=== PATIENT | male | born 1985 | race Caucasian/White ===

== ENCOUNTER 2017-02-12 11:23 | Emergency (ER) | payer OTHER ==
[~2017-02-12] VITALS: Ht 185.4 cm; Wt 98.3 kg
[~2017-02-12 11:23] MED LIST: BUPR8MIS SL; CTP2 PO; DSY50 PO; FLUN0.02 NAE; GABA-113 PO; MTR600XX PO; PROM25TA PO; ZOLP10TA6 PO; [UNRECOGNIZED DRUG - OTHER] TOP
[2017-02-12 11:30] VITALS: TEMP 36.6; Ht 185.4 cm; Wt 98.3 kg
[2017-02-12 11:47] VITALS: O2SAT 93
--- NOTE | 2017-02-12 12:12 | DIAGNOSTIC IMAGING REPORT ---
CHEST 2 VIEWS ROUTINE CLINICAL HISTORY: Chest pain, cough, shortness of breath COMPARISON STUDY: July 31, 2009 FINDINGS: The cardiac and mediastinal contours are normal. There are left lower lobe airspace opacities consistent with pneumonia. There are no pleural effusions.[ IMPRESSION: Left lower lobe airspace opacities consistent with pneumonia. Films subsequent to treatment are recommended in follow-up Electronically signed by: Anish Gamble M.D. 02/12/2017 12:11 PM Dictated Date/Time: 02/12/2017 12:10 PM
[2017-02-12] MEDS ORDERED: CEFTRIAXONE SOD INJ 1 GM ADDVIAL IV STA (12:47)
[2017-02-12] MEDS ORDERED: AZITHROMYCIN 250 MG TAB PO STA (12:47)
[2017-02-12] MEDS ORDERED: ALBUT/IPRATROP 3MG/0.5MG NEB 3 ML VIAL INH STA (12:47)
[2017-02-12 13:26] LABS: BASO % 0.1 %; BASO ABS # 0.01 K/uL (0-0.2); COMPLETE YES; EOS % 0.1 %; HEMATOCRIT 46.2 % (42-52); IG% 0.2 %; LYMPH % 13.9 %; LYMPH ABS # 1.45 K/uL (1.2-3.4); MEAN CELL VOLUME 84.2 fL (80-100); MEAN CORPUSCULAR HEMOGLOBIN 30.1 pg (25-34); MEAN CORPUSCULAR HGB CONC 35.7 g/dl (32-36); MEAN PLATELET VOLUME 10.9 fL (7.4-10.4); MONO % 11.2 %; NEUT % 74.5 %; PLATELET COUNT 175 K/uL (130-400); RED BLOOD COUNT 5.49 M/uL (4.7-6.1); WHITE BLOOD COUNT 10.43 K/uL (4.8-10.8)
[2017-02-12 13:45] LABS: BUN/CREATININE RATIO 9.7 (10-20); CALCIUM 9.1 mg/dl (8.5-10.1); POTASSIUM 4.3 mmol/L (3.5-5.1)
[2017-02-12 13:48] LABS: ALB/GLOB RATIO 0.9 (0.9-2)
[2017-02-12] MEDS ORDERED: AZITPOW PO (15:23)
[2017-02-12] MEDS ORDERED: AMOX500C3 PO ×2 (15:23→16:02)
--- NOTE | 2017-02-12 15:23 | EMERGENCY ROOM VISIT NOTE ---
History First contact with patient: 12:39 Chief Complaint: CONGESTION Stated Complaint: CP, COUGHING, LFT ARM NUMB, SOB Nursing Triage Summary: pt reports chest congestion and non productive cough x 1 week. History of Present Illness The patient is a 31 year old male who presents to the Emergency Room with complaints of cough, congestion for the past week. Patient states his symptoms have been getting progressively worse over the past few days. He complains of some left-sided chest pain with coughing. Cough is nonproductive. He reports associated chills, intermittent dizziness, general fatigue/malaise. He has not tried any [id number] medications for his symptoms. He denies any sick contacts. He denies fevers, shortness of breath, nausea/vomiting, abdominal pain, diarrhea, urinary complaints. Review of Systems GENERAL: + chills, malaise, fatigue. Denies fevers, unintentional weight changes. HEENT: + dizziness. Denies visual problems, hearing loss, tinnitus. Denies difficulty swallowing or oral lesions. PULMONARY: + cough. Denies shortness of breath, sputum production or hemoptysis. CARDIOVASCULAR: + chest pain. Denies palpitations, dyspnea on exertion, orthopnea or peripheral edema. GASTROINTESTINAL: Denies diarrhea, constipation, nausea, vomiting, or abdominal pain. GENITOURINARY: Denies dysuria, frequency, urgency or nocturia. NEUROLOGIC: Denies history of epilepsy, CVA, TIA or chronic headaches. MUSCULOSKELETAL: Denies history of joint tenderness/swelling. SKIN: Denies rashes or lesions. PSYCHIATRIC: Denies history of depression or mental illness. ENDOCRINE: Denies history of diabetes, thyroid disorders, abnormal hair growth or sexual dysfunction. Past Medical/Surgical History Medical Problems: (1) Benign hypertension (2) Post traumatic stress disorder (3) Traumatic brain injury Social History Smoking Status: Never Smoker Alcohol Use: occasionally Drug Use: none Marital Status: single Occupation Status: disabled Current/Historical Medications Scheduled Amoxicillin (Amoxil), 1,000 MG PO TID Azithromycin (Azithromycin), 500 MG PO DAILY Clonidine HCl (Clonidine HCl), 0.2 MG PO TID Flunisolide (Nasal) (Flunisolide), 2 SPRAYS JUANPABLO BID Gabapentin (Neurontin), 600 MG PO TID Zolpidem Tartrate (Zolpidem Tartrate), 10 MG PO HS Scheduled PRN Ibuprofen (Ibuprofen), 600 MG PO TID PRN for Pain Allergies Coded Allergies: No Known Allergies (Verified , 02/12/17) Physical Exam Vital Signs Date Time Temp Pulse Resp B/P Pulse Ox O2 Delivery O2 Flow Rate FiO2 02/12/17 16:08 94 130/98 96 Room Air 02/12/17 15:25 101 20 110/68 94 Room Air 02/12/17 15:24 101 20 94 Room Air 02/12/17 13:50 97 20 111/74 95 Room Air 02/12/17 13:23 93 02/12/17 12:40 100 18 118/79 94 Room Air 02/12/17 11:47 93 Room Air 02/12/17 11:30 36.6 115 18 115/76 92 Room Air Physical Exam CONSTITUTIONAL: No acute distress. Well appearing and well nourished. Alert and oriented X 4 with normal affect. HEENT: Normocephalic, atraumatic. Pupils equal, round and reactive to light, EOMI. TMs normal. Pharynx normal. Dry mucous membranes. NECK: Supple, full active range of motion without discomfort. RESPIRATORY: Crackles and rhonchi heard in the left lower lung whelan. Right lung whelan clear to auscultation. Equal expansion bilaterally. CARDIOVASCULAR: Tachycardia. Regular rate and rhythm with no murmurs, rubs or gallops. Normal peripheral perfusion. No edema. GASTROINTESTINAL: Soft, nontender, nondistended. Bowel sounds present in all quadrants. MUSCULOSKELETAL: Full range of motion of all joints without discomfort. INTEGUMENTARY: No rash or other significant dermatologic conditions noted. NEUROLOGIC: Cranial nerves II-XII grossly intact. No focal neurologic deficits noted. Medical Decision & Procedures ER Provider Diagnostic Interpretation: CHEST 2 VIEWS ROUTINE CLINICAL HISTORY: Chest pain, cough, shortness of breath COMPARISON STUDY: July 31, 2009 FINDINGS: The cardiac and mediastinal contours are normal. There are left lower lobe airspace opacities consistent with pneumonia. There are no pleural effusions.[ IMPRESSION: Left lower lobe airspace opacities consistent with pneumonia. Films subsequent to treatment are recommended in follow-up. Laboratory Results 02/12/17 13:15 Red Blood Count 5.49, Mean Corpuscular Volume 84.2, Mean Corpuscular Hemoglobin 30.1, Mean Corpuscular Hemoglobin Concent 35.7, Mean Platelet Volume 10.9, Neutrophils (%) (Auto) 74.5, Lymphocytes (%) (Auto) 13.9, Monocytes (%) (Auto) 11.2, Eosinophils (%) (Auto) 0.1, Basophils (%) (Auto) 0.1, Neutrophils # (Auto ) 7.77, Lymphocytes # (Auto) 1.45, Monocytes # (Auto) 1.17, Eosinophils # (Auto ) 0.01, Basophils # (Auto) 0.01 02/12/17 13:15 Test 02/12/17 13:15 White Blood Count 10.43 K/uL (4.8-10.8) Red Blood Count 5.49 M/uL (4.7-6.1) Hemoglobin 16.5 g/dL (14.0-18.0) Hematocrit 46.2 % (42-52) Mean Corpuscular Volume 84.2 fL (80-100) Mean Corpuscular Hemoglobin 30.1 pg (25-34) Mean Corpuscular Hemoglobin Concent 35.7 g/dl (32-36) Platelet Count 175 K/uL (130-400) Mean Platelet Volume 10.9 fL (7.4-10.4) Neutrophils (%) (Auto) 74.5 % Lymphocytes (%) (Auto) 13.9 % Monocytes (%) (Auto) 11.2 % Eosinophils (%) (Auto) 0.1 % Basophils (%) (Auto) 0.1 % Neutrophils # (Auto) 7.77 K/uL (1.4-6.5) Lymphocytes # (Auto) 1.45 K/uL (1.2-3.4) Monocytes # (Auto) 1.17 K/uL (0.11-0.59) Eosinophils # (Auto) 0.01 K/uL (0-0.5) Basophils # (Auto) 0.01 K/uL (0-0.2) RDW Standard Deviation 42.6 fL (36.4-46.3) RDW Coefficient of Variation 13.7 % (11.5-14.5) Immature Granulocyte % (Auto) 0.2 % Immature Granulocyte # (Auto) 0.02 K/uL (0.00-0.02) Anion Gap 7.0 mmol/L (3-11) Est Creatinine Clear Calc Drug Dose 130.9 ml/min Estimated GFR () 114.9 Estimated GFR (Non- 99.1 BUN/Creatinine Ratio 9.7 (10-20) Calcium Level 9.1 mg/dl (8.5-10.1) Total Bilirubin 0.5 mg/dl (0.2-1) Aspartate Amino Transf (AST/SGOT) 18 U/L (15-37) Alanine Aminotransferase (ALT/SGPT) 39 U/L (12-78) Alkaline Phosphatase 104 U/L (45-117) Total Protein 8.4 gm/dl (6.4-8.2) Albumin 3.9 gm/dl (3.4-5.0) Globulin 4.5 gm/dl (2.5-4.0) Albumin/Globulin Ratio 0.9 (0.9-2) Medications Administered Medications (Trade) Dose Ordered Sig/Jaziel Route Start Time Stop Time Status Last Admin Dose Admin Albuterol/ Ipratropium (Duoneb) 3 ml NOW STAT INH 02/12/17 12:47 02/12/17 12:52 DC 02/12/17 13:26 3 ML Azithromycin (Zithromax Tab) 500 mg NOW STAT PO 02/12/17 12:47 02/12/17 12:52 DC 02/12/17 13:26 500 MG Ceftriaxone Sodium (Rocephin Inj) 1 gm NOW STAT IV 02/12/17 12:47 02/12/17 12:52 DC 02/12/17 13:26 1 GM Albuterol (Ventolin Hfa Inhaler) 2 puffs NOW ONCE INH 02/12/17 15:30 02/12/17 15:31 DC 02/12/17 16:14 2 PUFFS Medical Decision CC: Patient presenting with complaint of cough and chest congestion. Interpretation of Labs: Unremarkable, no leukocytosis or signs of dehydration. Differential Diagnosis: Includes, but not limited to URI, bronchitis, pneumonia , dehydration, asthma/COPD exacerbation, PE. Summary: Patient was evaluated at bedside, history of physical exam performed. Patient is alert and in no acute distress. Afebrile, mild tachycardic on vital signs. Dry mucous membranes and patient appears dehydrated clinically. Left lung whelan with crackles and rhonchi. Orders were placed at bedside for chest x-ray, labs, IV fluids to evaluate for pneumonia, dehydration. Patient discussed with Dr. Gutiérrez, who agrees with my assessment and plan. Chest x-ray shows left lower lobe pneumonia. IV Rocephin and oral azithromycin given to the patient. Pt has no clinical signs for DVT, low well's score (cannot perc out due to tachycardia). Symptoms and workup consistent with pneumonia. Tachycardia resolved with IV fluids. I do not suspect PE. Patient improving with IV fluids and DuoNeb treatment. Walking saturations 94- 96% with no significant shortness of breath. Patient reassessed multiple times throughout ED stay, improving with treatment and vitals remained stable. Discharged home in good condition. Impression Primary Impression: Community acquired pneumonia Departure Information Dispostion Home / Self-Care Condition GOOD Prescriptions Amoxicillin (AMOXIL) 500 Mg Cap 1000 MG PO TID for 7 Days, #42 CAP Prov: Chichi Varner CRNP 02/12/17 Azithromycin (Azithromycin) 250 Mg Tab 500 MG PO DAILY for 4 Days, #8 TABS Prov: Chichi Varner CRNP 02/12/17 Referrals DB CROWE (PCP) Patient Instructions ED Pneumonia, [facility] Additional Instructions Follow-up with your PCP in the next few days to be rechecked. Take the antibiotics as prescribed for the full amount of days prescribed. Do not skip any doses. Use the albuterol inhaler provided to you, 2 puffs every 4-6 hours as needed for chest tightness, wheezing, cough. Drink plenty of fluids to stay well hydrated. Please return to the ER for worsening symptoms, including shortness of breath, chest pain, coughing up blood severe dizziness or passing out, vomiting and unable to keep down medications, fever/chills/feeling ill, or any other concerns.
[2017-02-12] MEDS ORDERED: ALBUTEROL HFA 8 GM INHALER INH ONE (15:30)
[2017-02-12] MEDS ORDERED: AZIT-57 PO (16:02)
[2017-02-12 16:08] VITALS: BP 130/98; PULSE 94; O2SAT 96
== END 2017-02-12 16:16 | disposition home or self-care (01) ==
LOC: C.EDB 11:27 → C.EDA 16:16
DX: J18.9 Pneumonia, unspecified organism (principal); R07.9 Chest pain, unspecified; R00.0 Tachycardia, unspecified; R53.81 Other malaise; R53.83 Other fatigue; I10 Essential (primary) hypertension; Z87.828 Personal history of other (healed) physical injury and trauma; Z79.899 Other long term (current) drug therapy; R91.8 Other nonspecific abnormal finding of lung field

== ENCOUNTER 2024-07-30 14:55 | Inpatient (IN) ==
--- NOTE | 2024-07-30 16:21 | XRay Report ---
Chest radiograph, one view History: Chest pain Comparison: 03/31/2023 Findings: Single AP view of the chest performed. No focal consolidation or pleural effusion. No pneumothorax. The cardiomediastinal silhouette is within normal limits. Normal pulmonary vascularity. No evidence for lymphadenopathy. No visualized bony or soft tissue abnormality. Impression: Normal chest radiograph Electronically signed by Romulo Lunsford 07-30-2024 4:20 PM
[2024-07-30 16:33] LABS: Influenza A virus by PCR Negative (Neg); Influenza B virus by PCR Negative (Neg); RSV by PCR Negative (Neg); SARS CoV2 RNA(COVID-19) Ceph NEGATIVE (Negative)
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
[2024-07-30 16:49] LABS: Basophils # (auto) 0.03 K/uL (0.00-0.20); Basophils % (auto) 0.4 %; Eosinophils % (auto) 1.2 %; Hematocrit (blood only) 41.3 % (42.0-52.0); Hemoglobin 14.9 g/dl (14.0-18.0); Immature Granulocytes # (auto) 0.02 K/uL (0.01-0.20); Immature Granulocytes % (auto) 0.2 %; Lymphocytes # (auto) 1.76 K/uL (1.20-3.40); Lymphocytes % (auto) 20.6 %; Mean Corpuscular Hemoglobin 29.4 pg (25.0-34.0); Mean Corpuscular Hgb Conc 36.1 g/dL (32.0-36.0); Mean Corpuscular Volume 81.5 fL (80.0-100.0); Mean Platelet Volume 11.1 fL (9.4-12.4); Monocytes # (auto) 0.84 K/uL (0.11-0.59); Monocytes % (auto) 9.8 %; Neutrophils # (auto) 5.79 K/uL (1.40-6.50); Neutrophils % (auto) 67.8 %; Platelet Count 208 K/uL (130-400); RDW Coefficient of Variation 12.2 % (11.5-14.5); RDW Standard Deviation 35.9 fL (36.4-46.3); Red Blood Count 5.07 M/uL (4.70-6.10); White Blood Count 8.54 K/ul (4.8-10.8)
[2024-07-30] MEDS: SODIUM CHLORIDE 0.9% 1,000 ML IV ONE (17:01)
[2024-07-30 17:07] LABS: Alanine Aminotransferase 10 U/L (7-52); Albumin Globulin Ratio 1.3 (0.9-2); Albumin Level 4.2 gm/dl (3.4-5.0); Alkaline Phosphatase 93 U/L (34-104); Anion Gap 6 (3-11); Aspartate Aminotransferase 15 U/L (13-39); Bilirubin,Total 0.5 mg/dl (0.2-1.0); Blood Urea Nitrogen 10 mg/dl (6-23); Calcium 9.2 mg/dl (8.6-10.3); Carbon Dioxide 31 mmol/L (21-32); Chloride 102 mmol/L (98-107); Creatinine Clr Calc Pharmacy 107.8 ml/min; Globulin 3.2 gm/dl (2.5-4.0); Glucose 123 mg/dl (70-99(Fasting)); Magnesium 1.9 mg/dl (1.7-2.4); Potassium 4.5 mmol/L (3.5-5.1); Sodium 139 mmol/L (136-145); Total Protein 7.4 gm/dl (6.0-8.3)
[2024-07-30 17:11] LABS: Troponin I High Sensitivity < 2.3 pg/ml (0-20)
[2024-07-30 17:17] LABS: INR 1.1 (0.9-1.1); Partial Thromboplastin Time 26 Seconds (21-31); Prothrombin Time 11.4 Seconds (9.0-12.0)
[2024-07-30 17:21] LABS: Thyroid Stimulating Hormone 2.847 uIu/ml (0.300-4.500)
[2024-07-30 17:24] LABS: Procalcitonin < 0.02 ng/ml (0-0.5)
[2024-07-30] MEDS ORDERED: VANCOMYCIN CONSULT ACTIVE PRN (17:42)
[2024-07-30 17:50] LABS: Lyme Screen Rflx Confirmation Negative (Negative)
--- NOTE | 2024-07-30 18:00 | Electrocardiogram Report ---
Test Reason : Blood Pressure : */* mmHG Vent. Rate : 40 BPM Atrial Rate : 40 BPM P-R Int : 172 ms QRS Dur : 84 ms QT Int : 482 ms P-R-T Axes : 58 35 43 degrees QTcB Int : 392 ms Marked sinus bradycardia Abnormal ECG When compared with ECG of 31-Mar-2023 22:56, Vent. rate has decreased by 28 bpm Confirmed by Romulo Waters ([id number]) on 07/30/2024 5:59:48 PM Referred By: Confirmed By: Romulo Waters
[2024-07-30] MEDS: cefTRIAXone SODIUM 2,000 MG/50 ML BAG IV STA (18:08)
[2024-07-30] MEDS: VANCOMYCIN HCL 1,750 MG in DEXTROSE 5% 500 ML IV ONE (18:42)
[2024-07-30 20:24] LABS: Lipase 12 U/L (11-82)
--- NOTE | 2024-07-30 20:39 | History & Physical Report ---
Date of Service July 30, 2024 Assessment & Plan (1) Sinus bradycardia: (2) Cellulitis: (3) Seizure disorder: (4) Chronic constipation: (5) Nausea & vomiting: Plan 39 year old male with PMHx of chronic constipation with h/o partial colectomy secondary to perforation, h/o TBI with seizures, presenting at the recommendation of his PCP seemingly due to new bradycardia: #Sinus bradycardia: Unclear etiology but suspect secondary to infectious process, rates consistently in the 30s-40s - patient more fatigued compared to baseline but not overtly symptomatic EKG sinus bradycardia, rate 40, QTc 392 TSH WNL Hold home Clonidine due to bradycardia - anticipate rebound hypertension, PRN hydralazine 5mg IV Q4H for SBP>180 - Consider restarting clonidine as rates improve #Burn/Cellulitis, RLE: Given h/o IV drug use, continue broad spectrum abx with Vanc and Ceftriaxone - Nasal MRSA pending - if negative, will discontinue Vanc Inflammatory markers pending, recheck AM labs: CBC #Chronic constipation: Likely cause of N/V - KUB ordered to evaluate stool burden, r/o SBO - pending - if able to r/o SBO, will escalate bowel regimen with Senna + Miralax #Seizure disorder: - Continue home Clonazepam 1mg QID Dispo: admit to PCU-tele FEN/GI: regular diet VTE ppx: Lovenox Full Code History of Present Illness Primary Care Provider: Hermilo Mitchell MD 39 year old male with PMHx of chronic constipation with h/o partial colectomy secondary to perforation, h/o TBI with ongoing seizures, presenting at the recommendation of his PCP seemingly due to new bradycardia "or maybe something in my urine." Patient is not a particularly good historian, appears lethargic, mentally sluggish, and with tangential speech. Patient reports that he has been having intermittent dizziness, HAs, nausea, vomiting, and generalized fatigue, all of which are chronicx4-5 years but seem to have worsened over the past few weeks. Of note, patient repeatedly expresses suspicion that his neighbors put something in his home that causes "sonic nausea," thinks this may be the cause of his sx. Lightheadedness is not positionally related, sometimes occurs at rest. Pt reports vomiting at least half the days over the past 2 weeks, anywhere from 2-10 times in a day and not improved with Zofran. Patient reports mild URI about 3 weeks ago, had sore throat, cough, sinus congestion. Denies diarrhea, last bowel movement 5-7 days ago, is passing gas though. Denies chest pain, shortness of breath, palpitations. Sinus bradycardia noted at PCP appointment yesterday. Per patient, this is first occurrence of bradycardia, states that he had some kind of tachyarrhythmia in 2014 but otherwise denies h/o cardiac issues. Endorses dysuria and increased urinary frequency over past 4-5 days. Also burned his right calf 4-5 days ago, states that it is exquisitely tender even with light touch. Patient denies any recent medication changes, states that he takes all his meds as prescribed. Denies recreational drug use, denies EtOH use. ED Course: Patient afebrile on arrival, WBC count WNL, labs largely unremarkable with negative lactate/procal/troponin/lipase/Lyme screen, EKG with sinus bradycardia rate 40. Given 1L IV fluids and started on broad spectrum abx (Ceftriaxone, Vanc ordered) Allergies Allergy/AdvReac Type Severity Reaction Status Date / Time naloxone Allergy throat Verified 07/30/24 18:41 swelling, headaches trazodone Allergy sexual Verified 07/30/24 18:41 dysfunction Home Medications Medication Instructions Recorded Confirmed Type acetaminophen 325 mg tablet 650 mg PO QID PRN Pain 10/15/22 07/30/24 History buprenorphine HCl 8 mg sublingual 8 mg sublingual TID 10/15/22 07/30/24 History tablet clonazepam 1 mg tablet 1 mg PO QID 10/15/22 07/30/24 History clonidine HCl 0.3 mg tablet 0.3 mg PO TID 10/15/22 07/30/24 History docusate sodium 100 mg tablet 100 mg PO BID PRN Constipation 10/15/22 07/30/24 History polyethylene glycol 3350 17 17 - 34 g PO QAM PRN Constipation 10/15/22 07/30/24 History gram/dose oral powder (Miralax) quetiapine 100 mg tablet 100 mg PO UD 10/15/22 07/30/24 History zolpidem 10 mg tablet 10 mg PO HS PRN Sleep 10/15/22 07/30/24 History quetiapine 200 mg tablet (Seroquel) 200 mg PO UD 07/30/24 07/30/24 History Past Med/Surg History Problem List (Updated 07/31/24 @ 00:02 by Donn Browning MD) Abrasion of skin of right lower leg (Acute) Cellulitis of right lower extremity (Acute) Symptomatic bradycardia (Acute) Cellulitis Nausea & vomiting Sinus bradycardia Chronic constipation Seizure disorder Constipation (Acute) Encounter for pre-operative examination Altered mental status (Acute) Community acquired pneumonia (Acute) Drug overdose (Acute) Medical History Dyssynergic defecation "had a special test done at [facility]" Hx of irritable bowel syndrome w/constipation History of urinary hesitancy Hx of traumatic brain injury residual effect: dizziness, lightheadedness, falling, memory lapses; f/u w/neurologist thru the [place], most recent visit via zoom 10/15/22 Generalized anxiety disorder with panic attacks Anxiety disorder History of seizure many years ago; currrently on clonazepam History of panic attacks Hx of cardiac arrhythmia ~2013 or 2014, "heart was racing, went to up over 200bpm, having chest pain; called EMS, who came to house to get heart rate down" taken to hospital, transferred to [place], testing done and found to have an arrhythmia; only f/u PCP Surgical History History of surgery "removed cancer cells from his scalp" Hx of shoulder surgery pectoralis muscle reattached Hx of arthroscopic knee surgery rt. History of intestinal surgery re-anastomosis/reveral of colostomy of bowel Hx of hernia repair x2 History of partial colectomy w/removal appendix; w/colostomy Social History Smoking Status: Current every day smoker Tobacco Type: E-cigarettes / Vaping Cigarettes Per Day: vape daily; Second Hand Exposure: No; Do You Dip or Chew Tobacco: No; Tobacco Cessation Education Requested by Patient: No Hx Alcohol Use: No Hx Substance Use: No Preferred Language: Canadian Communication Ability: Effective Housekeeping Assistant Required: No Beliefs That Will Affect Care: None Current Living Situation: Alone Feels Safe at Home: Yes Safety Concerns: Feels Safe At This Time Assistive Devices: Glasses Review of Systems Review of Systems: as per HPI Physical Exam Physical Exam: General: Alert and oriented. Lethargic but in no acute distress Cardiac: +bradycardia, regular rhythm, no murmurs appreciated Respiratory: Lungs clear to auscultation bilaterally, No increased work of breathing Abdominal: Soft, non-tender, non-distended. Bowel sounds present. Extremities: Right medial calf with superficial burn with surrounding erythema and swelling in comparison to left calf Neuro: AOx3, PERRL, no focal deficits Results & Data Results & Data Vital Signs (Past 12 Hours) Vital Signs Temp Pulse Pulse Resp BP BP Pulse Ox 07/30/24 19:15 40 L 07/30/24 18:36 42 L 16 99 07/30/24 18:30 165/92 H 07/30/24 18:15 39 L 12 99 07/30/24 18:03 37 L 13 100 07/30/24 18:00 152/101 H 07/30/24 17:45 36 L 14 100 07/30/24 17:30 37 L 18 158/96 H 100 07/30/24 17:12 36 L 12 100 07/30/24 16:59 39 L 14 135/84 98 07/30/24 16:42 38 L 15 07/30/24 16:15 39 L 19 07/30/24 16:03 40 L 17 96 07/30/24 16:00 118/78 07/30/24 15:54 41 L 13 96 07/30/24 15:45 40 L 13 96 07/30/24 15:30 38 L 129/85 96 07/30/24 15:30 129/85 07/30/24 15:05 39 L 07/30/24 15:01 36.5 C 41 L 16 129/81 96 O2 Del Method 07/30/24 19:15 07/30/24 18:36 Room Air 07/30/24 18:30 07/30/24 18:15 Room Air 07/30/24 18:03 Room Air 07/30/24 18:00 07/30/24 17:45 Room Air 07/30/24 17:30 Room Air 07/30/24 17:12 Room Air 07/30/24 16:59 Room Air 07/30/24 16:42 07/30/24 16:15 07/30/24 16:03 Room Air 07/30/24 16:00 07/30/24 15:54 Room Air 07/30/24 15:45 Room Air 07/30/24 15:30 Room Air 07/30/24 15:30 07/30/24 15:05 07/30/24 15:01 Room Air Supervising Physician Co-Signing Physician Notes I personally saw and examined the patient. I independently reviewed the labs, EKG, imaging, problem list, medication list, past medical history and family history. I verified all cuellar points and agree with resident physician Dr Pradeep Strong, DO with the following exceptions and/or additions: 39 year old male presents to the ER with generalized weakness, nausea, dizziness. Right lower extremity swelling and erythema. O/E HS decreased rate, regular rhythm, no murmurs, Chest CTAB, Abdo SNT, right lower extremity erythema and swelling from mid jean baptiste to ankle A/P Right lower extremity cellulitis - Vancomycin + ceftriaxone, consider stopping vancomycin if MRSA nasal swab negative Sinus bradycardia - suspect due to infection in setting of clonidine use. Stop clonidine, Hydralazine PRN for rebound hypertension Constipation - await XR KUB before adding laxatives to assess for SBO although no abdominal pain on exam although he has not had a bowel movement in several days and has some nausea and vomiting. Resident Activity Tracking Resident Involvement: Resident Care Provided Care Provided: Adult Hospital Medicine
[2024-07-30 20:47] LABS: Appearance Urine Clear (Clear); Bacteria Urine Automated None Seen (None Seen); Bilirubin Urine Negative (Negative); Blood Urine Trace (Negative); Calcium Oxalate Crystals Urine Present (None Prsent); Cast Urine Automated 0-2 /lpf (0-2); Color Urine Yellow; Epithelial Cell Urine Auto 0-2 /hpf (0-2); Glucose Urine UA Negative (Negative); Ketones Urine Negative (Negative); Leukocyte Esterase Urine Negative (Negative); Nitrite Urine Negative (Negative); Protein Urine Negative (Negative); Urobilinogen Urine Negative (Negative); WBC Urine Automated 0-5 /hpf (0-5)
[2024-07-30 21:04] LABS: Amphetamines+Metham, Urine Neg (Neg); Barbiturates, Urine Neg (Neg); Benzodiazepine, Urine Neg (Neg); Cocaine, Urine Neg (Neg); Fentanyl, Urine Neg (Neg); MDMA (Ecstacy), Urine Neg (Neg); Marijuana, Urine Neg (Neg); Methadone, Urine Neg (Neg); Opiate, Urine Neg (Neg); Phencyclidine, Urine Neg (Neg)
[2024-07-30] MEDS ORDERED: POLYETHYLENE (MIRALAX) 17 GM PACK PO PRN (21:25)
[2024-07-30] MEDS ORDERED: ALUMINUM/MAGNESIUM SUSP 30 ML UDC PO PRN (21:25)
[2024-07-30] MEDS ORDERED: MAGNESIUM HYDROXIDE SUSP 30 ML UDC PO PRN (21:25)
[2024-07-30] MEDS ORDERED: hydrALAZINE HCL 20 MG/ML VIAL IV PRN (21:25)
[2024-07-30] MEDS ORDERED: ACETAMINOPHEN 325 MG TAB PO PRN (21:25)
[2024-07-30] MEDS ORDERED: ONDANSETRON INJ 2 MG/ML 2 ML VIAL IV PRN (21:25)
[2024-07-30 21:37] LABS: C Reactive Protein 2.45 mg/dl (0-0.5)
[2024-07-30] MEDS: buprenorphine HCL 8 MG SUBL SL SCH (22:12)
[2024-07-30] MEDS: clonazePAM 1 MG TAB PO SCH (22:12)
[2024-07-30] MEDS: QUEtiapine FUMARATE 100 MG TABLET PO SCH (22:13)
[2024-07-30] MEDS: QUEtiapine FUMARATE 200 MG TAB PO SCH (22:13)
[2024-07-30] MEDS: DOCUSATE SODIUM 100 MG CAP PO PRN (22:14)
--- OUTSIDE RECORDS SUMMARY | 2024-07-31 00:44 | External Medical Summary | Summary of Care ---
Author Name Unknown Organization [facility] Address [address] [place] [address] Phone [phone] Care Team Providers Care Spotlight Operator Name Role Phone Hermilo Mitchell MD Primary Care Provider [phone] Reason for Visit * Reason Onset Date Comments Referral 05/12/2024 Encounter Details Date Type Department Care Team (Late st Contact Info) Description 05/12/2024 Telephone Gastroenterology, [facility] [address] [facility] [place] [address] Aaron Arizmendi MD [address] [facility] [place] [address] Referral Allergies No known active allergiesdocumented as of this encounter (statuses as of 05/12/2024) Medications Medication Sig Dispensed Refills Start Date End Date Status AMITRIPTYLINE HCL 25 MG PO TABSIndications:Headac he(784.0),Insomnia, unspecified,Anxiety state One pill by mouth at bedtime 30 Tab 5 05/06/2012 Active AMBIEN 10 MG PO TABSIndications:Insomn ia, unspecified 1 pill if awakens 15 Tab 1 05/06/2012 Active documented as of this encounter (statuses as of 05/12/2024) Active Problems Problem Noted Date Diagnosed Date ACUTE PHARYNGITIS 07/16/2004 ACUTE URI NOS 07/16/2004 Unspecified viral infection, in conditions classified elsewhere and of unspecified site 07/16/2004 MYALGIAS 07/16/2004 Dysuria 06/11/2004 Urinary frequency 06/11/2004 History of other specified c onditions presenting hazards to health 06/11/2004 Overview: ICD-10 update of inactive term BACKACHE NOS 06/11/2004 Malaise and fatigue 02/22/2004 Anxiety state 02/22/2004 Major depressive disorder, recurrent episode, mo derate 02/22/2004 CHLAMYDIA TRACHOMATIS INFECT OF LOWER GENITOURIN CRISTA SITE 12/06/2003 Other acne documented as of this encounter (statuses as of 05/12/2024) Resolved Problems Problem Noted Date Diagnosed Date Resolved Date CHLAMYDIA TRACHOMATIS INFECT OF LOWER GENITOURINARY SITE 11/28/2003 02/22/2004 Dysuria 11/18/2003 02/22/2004 VIRAL SYNDROME 12/20/2002 02/22/2004 ACUTE PHARYNGITIS 12/20/2002 02/22/2004 Unspecified viral infection, in conditions classified elsewhere and of unspecified site 07/01/2001 02/22/2004 ACUTE URI NOS 07/01/2001 02/22/2004 Volume depletion 07/01/2001 02/22/2004 ADJUST REACT-CONDUCT DIS 02/05/2001 documented as of this encounter (statuses as of 05/12/2024) Immunizations Name Administration Dates Next Due TDAP, Age 7 and older, IM (Adacel) 06/14/2009 documented as of this encounter Social History Tobacco Use Types Packs/Day Years Used Date Smoking Tobacco: Every Day Cigarettes Smokeless Tobacco: Never Alcohol Use Standard Drinks/Week Comments No 0 (1 standard drink = 0.6 oz pur e alcohol) Utilities Answer Date Recorded Do you have trouble paying y our heating, water, or electric bill? (Adult - for ages 18 years and over) Not on file 03/16/2024 Is your family able to pay t he heat, water, or electric bill? (Household - for ages 0-17 years) Not on file 03/16/2024 Does your family have access to good internet? (Household - for ages 0-17 years) Not on file 03/16/2024 Social Connections Answer Date Recorded How often do you feel lonely or isolated from those around you? (Adult - for ages 18 years and over) Not on file 03/16/2024 Sex and Gender Information Value Date Recorded Sex Assigned at Not on file Gender Identity Not on file Sexual Orientation Not on file documented as of this encounter Miscellaneous Notes * Telephone Encounter - Arleth Hull OSA - 05/12/2024 8:26 AM EDT Received referral for pt to be seen for constipation. Lmm for pt to return call to schedule appt AARTI Mckay 05/12/2024 8:26 AM documented in this encounter Plan of Treatment Health Maintenance Due Date Last Done Comments Pneumococcal Vaccine: Pediatrics (0 to 5 Years) and At-Risk Patients (6 to 64 Years) (1 of 2 - PCV) 1990 Depression Monitoring 1996 HIV Screening 1999 Hepatitis B Vaccine (1 of 3 - 19+ 3-dose series) 2003 Lipid Panel 01/27/2005 01/28/2000, 11/28, 11/15/1999, Additional history exists DTaP,Tdap,and Td Vaccines (2 - Td or Tdap) 06/14/2019 06/14/2009 COVID-19 Vaccine (1 - 2022-24 season) 2023 Influenza Vaccine (FLU shot) (#1) 2024 Hepatitis C Screening Completed 07/12/1998 HPV (Gardasil) Vaccine Aged Out No lo nger eligible based on patient's age to complete this topic MENINGOCOCCAL (MENACTRA/MENVEO) Aged Out No longer eligible based on patient's age to complete this topic documented as of this encounter Medical Devices Not on filedocumented as of this encounter Care Teams Spotlight Operator Relationship Specialty Start Date End Date Hermilo Mitchell MD [address] [facility] [place] [address] PCP - General Internal Medicine 07/09/23 documented as of this encounter
--- OUTSIDE RECORDS SUMMARY | 2024-07-31 00:44 | External Medical Summary | Summary of Care ---
Author Name Unknown Organization [facility] Address [address] [place] [address] Phone [phone] Care Team Providers Care Supervisor Hardboard Name Role Phone Hermilo Mitchell MD Primary Care Provider [phone] Reason for Visit * Reason Onset Date Comments Referral 05/12/2024 Encounter Details Date Type Department Care Team (Late st Contact Info) Description 05/12/2024 Telephone Gastroenterology, [facility] [address] [place] [address] Aaron Arizmendi MD [address] [facility] [place] [address] Referral Allergies No known active allergiesdocumented as of this encounter (statuses as of 05/26/2024) Medications Medication Sig Dispensed Refills Start Date End Date Status AMITRIPTYLINE HCL 25 MG PO TABSIndications:Headac he(784.0),Insomnia, unspecified,Anxiety state One pill by mouth at bedtime 30 Tab 5 05/06/2012 Active AMBIEN 10 MG PO TABSIndications:Insomn ia, unspecified 1 pill if awakens 15 Tab 1 05/06/2012 Active documented as of this encounter (statuses as of 05/26/2024) Active Problems Problem Noted Date Diagnosed Date [...] as of this encounter (statuses as of 05/26/2024) Resolved Problems Problem Noted Date Diagnosed Date Resolved Date CHLAMYDIA TRACHOMATIS INFECT OF LOWER GENITOURINARY SITE 11/28/2003 02/22/2004 Dysuria 11/18/2003 02/22/2004 VIRAL SYNDROME 12/20/2002 02/22/2004 ACUTE PHARYNGITIS 12/20/2002 02/22/2004 Unspecified viral infection, in conditions classified elsewhere and of unspecified site 07/01/2001 02/22/2004 ACUTE URI NOS 07/01/2001 02/22/2004 Volume depletion 07/01/2001 02/22/2004 ADJUST REACT-CONDUCT DIS 02/05/2001 documented as of this encounter (statuses as of 05/26/2024) Immunizations Name Administration Dates Next Due IPV - Polio Virus Vaccine (Inact) 05/27/2001 TDAP, Age 7 and older, IM (Adacel) [...] Telephone Encounter - Arleth Hull OSA - 05/26/2024 9:31 AM EDT Unable to lm Sending letter AARTI Mckay 05/26/2024 9:31 AM * Telephone Encounter - Arleth Hull OSA [...] 01/27/2005 01/28/2000, 11/28, 11/15/1999, Additional history exists DTap/Tdap Vaccines (2 - Td or Tdap) 06/14/2019 06/14/2009 COVID-19 Vaccine (2022-24 season) 2023 Influenza Vaccine (FLU shot) (#1) 2024 Hepatitis C Screening Completed 07/12/1998 HPV (Gardasil) Vaccine Aged Out No lo nger eligible based on patient's age to complete this topic MENINGOCOCCAL (MENACTRA/MENVEO) Aged Out No longer eligible based on patient's age to complete this topic documented as of this encounter Medical Devices Not on filedocumented as of this encounter Care Teams Supervisor Hardboard Relationship Specialty Start Date End Date Hermilo Mitchell MD [address] [facility] [place] [address] PCP - General Internal Medicine 07/09/23 documented as of this encounter
--- OUTSIDE RECORDS SUMMARY | 2024-07-31 00:44 | External Medical Summary | Summary of Care ---
Author Name Unknown Organization [facility] Address [address] [place] [address] Phone [phone] Care Team Providers Care Miller First Name Role Phone Hermilo Mitchell MD Primary Care Provider [phone] Encounter Details Date Type Department Care Team (Late st Contact Info) Description 02/18/2024 Telephone Access Center, [facility] [address] [facility] *DO NOT REMOVE THIS DEPARTMENT* [place], [place] [id number] Services, Scheduling [address] [place] [address] Allergies No known active allergiesdocumented as of this encounter (statuses as of 05/19/2024) Medications Medication Sig Dispensed Refills Start Date End Date Status AMITRIPTYLINE HCL 25 MG PO TABSIndications:Headac he(784.0),Insomnia, unspecified,Anxiety state One pill by mouth at bedtime 30 Tab 5 05/06/2012 Active AMBIEN 10 MG PO TABSIndications:Insomn ia, unspecified 1 pill if awakens 15 Tab 1 05/06/2012 Active documented as of this encounter (statuses as of 05/19/2024) Active Problems Problem Noted Date Diagnosed Date [...] as of this encounter (statuses as of 05/19/2024) Resolved Problems Problem Noted Date Diagnosed Date Resolved Date CHLAMYDIA TRACHOMATIS INFECT OF LOWER GENITOURINARY SITE 11/28/2003 02/22/2004 Dysuria 11/18/2003 02/22/2004 VIRAL SYNDROME 12/20/2002 02/22/2004 ACUTE PHARYNGITIS 12/20/2002 02/22/2004 Unspecified viral infection, in conditions classified elsewhere and of unspecified site 07/01/2001 02/22/2004 ACUTE URI NOS 07/01/2001 02/22/2004 Volume depletion 07/01/2001 02/22/2004 ADJUST REACT-CONDUCT DIS 02/05/2001 documented as of this encounter (statuses as of 05/19/2024) Immunizations Name Administration Dates Next Due TDAP, [...] encounter Miscellaneous Notes * Telephone Encounter - Marce Lazar OSA - 02/18/2024 8:23 AM EDT Unable to reach patient to offer sooner appointment. If patient calls back and still available please reschedule and offer video visit. Thank you documented in this encounter Plan of Treatment [...] Tdap) 06/14/2019 06/14/2009 COVID-19 Vaccine (1 - 2022- season) 2023 Influenza Vaccine (FLU shot) (#1) 2024 Hepatitis C Screening Completed 07/12/1998 HPV (Gardasil) Vaccine Aged Out No lo nger eligible based on patient's age to complete this topic MENINGOCOCCAL (MENACTRA/MENVEO) Aged Out No longer eligible based on patient's age to complete this topic documented as of this encounter Medical Devices Not on filedocumented as of this encounter Care Teams Miller First Relationship Specialty Start Date End Date Hermilo Mitchell MD [address] [facility] [place] [address] PCP - General Internal Medicine 07/09/23 documented as of this encounter
--- OUTSIDE RECORDS SUMMARY | 2024-07-31 00:44 | External Medical Summary | Summary of Care ---
Author Name Unknown Organization [facility] Address [address] [place] [address] Phone [phone] Care Team Providers Care Press Tender Long Goods Name Role Phone Hermilo Mitchell MD Primary Care Provider [phone] Reason for Visit * Reason Onset Date Comments Referral 05/12/2024 Encounter Details Date Type Department Care Team (Late st Contact Info) Description 05/12/2024 Telephone Gastroenterology, [facility] [address] [place] [address] Aaron Arizmendi MD [address] [place] [address] Referral Allergies No known active allergiesdocumented as [...] 05/26/2024 9:31 AM EDT Unable to lm AARTI Mckay 05/26/2024 9:31 AM * Telephone [...] filedocumented as of this encounter Care Teams Press Tender Long Goods Relationship Specialty Start Date End Date Hermilo Mitchell MD [address] [facility] [place] [address] PCP - General Internal Medicine 10/11/23 documented as of this encounter
--- NOTE | 2024-07-31 01:04 | XRay Report ---
Exam(s): XR ABDOMEN EXAM: XR Abdomen, 1 View CLINICAL HISTORY: Reason for exam: constipation, r/o SBO. TECHNIQUE: Frontal supine view of the abdomen/pelvis. COMPARISON: No relevant prior studies available. FINDINGS: Gastrointestinal tract: 7.6 cm of stool in the cecum and right colon suggesting constipation. No dilation. Bones/joints: Unremarkable. No acute fracture. Vasculature: There are several phleboliths in the left side of the pelvis. IMPRESSION: 7.6 cm of stool in the cecum and right colon suggesting constipation. No dilated small bowel loops identified. Electronically signed by: Eugene Mccracken MD 07/31/24 01:04 AM
[2024-07-31] MEDS: VANCOMYCIN 1,500 MG in D5W 500mL (Use w/ NSS Shortage) IV SCH (03:56)
[2024-07-31 06:55] LABS: Basophils # (auto) 0.04 K/uL (0.00-0.20); Basophils % (auto) 0.6 %; Eosinophils # (auto) 0.15 K/uL (0.00-0.50); Eosinophils % (auto) 2.4 %; Hematocrit (blood only) 38.4 % (42.0-52.0); Hemoglobin 13.4 g/dl (14.0-18.0); Immature Granulocytes # (auto) 0.01 K/uL (0.01-0.20); Immature Granulocytes % (auto) 0.2 %; Lymphocytes # (auto) 2.06 K/uL (1.20-3.40); Lymphocytes % (auto) 32.7 %; Mean Corpuscular Hemoglobin 29.1 pg (25.0-34.0); Mean Corpuscular Hgb Conc 34.9 g/dL (32.0-36.0); Mean Corpuscular Volume 83.5 fL (80.0-100.0); Mean Platelet Volume 11.1 fL (9.4-12.4); Monocytes # (auto) 0.76 K/uL (0.11-0.59); Monocytes % (auto) 12.1 %; Neutrophils # (auto) 3.28 K/uL (1.40-6.50); Platelet Count 179 K/uL (130-400); RDW Coefficient of Variation 12.3 % (11.5-14.5); RDW Standard Deviation 37.1 fL (36.4-46.3)
[2024-07-31 07:11] LABS: Albumin Globulin Ratio 1.5 (0.9-2); Albumin Level 3.7 gm/dl (3.4-5.0); BUN Creatinine Ratio 12.2 (10-20); Bilirubin,Total 0.4 mg/dl (0.2-1.0); Calcium 8.4 mg/dl (8.6-10.3); Creatinine Clr Calc Pharmacy 131.4 ml/min; Globulin 2.5 gm/dl (2.5-4.0); Potassium 3.7 mmol/L (3.5-5.1); Total Protein 6.2 gm/dl (6.0-8.3)
[2024-07-31 07:48] VITALS: RESP 17
[2024-07-31] MEDS: ENOXAPARIN INJ 40 MG/0.4 ML SYR SQ SCH (07:51)
--- NOTE | 2024-07-31 07:57 | Billing Data ---
Date of Service July 30, 2024 Coding Level of Care Code 23439 INT INP/OBS CARE
[2024-07-31 11:18] VITALS: BP 128/84; PULSE 77; TEMP 98.1; O2SAT 99
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
[2024-07-31] MEDS ORDERED: VANCOMYCIN HCL 1,500 MG in SODIUM CHLORIDE 0.9% 500 ML IV ONE (16:00)
[2024-07-31] MEDS ORDERED: cefTRIAXone SODIUM 2,000 MG/50 ML BAG IV SCH (18:00)
[2024-08-01] MEDS ORDERED: VANCOMYCIN LEVEL ONE (03:30)
== END 2024-07-31 12:27 | disposition home or self-care (01) | DRG 309 ==
LOC: ED 14:55 → SUATTDRO 19:55 → 2S 19:55

== ENCOUNTER 2024-08-14 06:45 | Inpatient (IN) ==
--- NOTE | 2024-08-14 07:01 | Emergency Department Note ---
Impression & Plan Kidney stone on right side, Nausea & vomiting, Drowsy ED Provider Note Provider: Eugene Mauricio MD DATE OF SERVICE: 08/13/2024 CHIEF COMPLAINT: Right abdominal pain nausea and vomiting, HISTORY OF PRESENT ILLNESS: Patient is a 39-year-old gentleman with history of chronic constipation prior partial colectomy secondary to perforation, TBI with seizures presenting here today from home via ambulance. Reports onset around 2:30a this morning with significant pain in the right abdomen to flank region. Experienced 5-6 episodes of nausea and vomiting. No blood reported in this patient. No diarrhea. Denies significant chest pain or shortness of breath. No falls reported. No cough or cold symptoms. No issues yesterday. States he feels a little bit drowsy. No significant genital pain reported. PAST MEDICAL HISTORY: As noted above MEDICATIONS: Reviewed home medication listhas not taken morning meds SOCIAL HISTORY: Resides at home PHYSICAL EXAM: GENERAL: alert and oriented in no acute distress on stretcher but fatigued resting with eyes closed somewhat drowsy Head: normocephalic and atraumatic EYES: No discharge or icterus with very mild bilateral injection. PERRL, EOMI. NECK: Trachea midline. ENT: Mucous membranes pink and LUNGS: Airway patent. No retractions. Breath sounds clear with good air entry bilaterally. HEART: Regular rate and rhythm. No chest wall tenderness ABDOMEN: Soft without guarding with tenderness in the right abdomen to right flank region. No left-sided tenderness. SKIN: Acyanotic, warm, dry, without rashes EXTREMITIES: Without swelling, tenderness or deformity NEUROLOGICAL: No focal deficits moves all extremities to command. No aphasia. No facial droop or slurred speech but a little slow to respond at times. EK bpm normal sinus rhythm. No PVC or PAC. No acute ST segment elevation or depression QTc of 398. CONTINUOUS CARDIAC MONITORING: was ordered and showed a heart rate of 50s to 60s bpm in normal sinus rhythm to sinus bradycardia Patient's laboratory studies and imaging reviewed. Differential includes Appendicitis, testicular torsion, infections, diverticulitis, UTI, obstruction, mesenteric ischemia, aortic pathology, inflammatory bowel disease, renal colic, PUD, pancreatitis, biliary pathology, hernia, volvulus, constipation, as well as other pathologies. IMPRESSION/MEDICAL DECISION MAKING: Patient history of TBI as a more significantly prior bowel perforation at partial colectomy reversed with some right-sided abdominal flank pain. Nausea and vomiting. Abdomen is not significantly distended or tympanic. Will obtain CT imaging given his significant history here to exclude obstruction or other intra-abdominal pathology. Basic blood work obtained. Does seem a low bit drowsy on exam with slight headache. Unsure if this is because he was up for a good part of the night feeling ill, medication related, or something else. No focal deficits doubt CVA. Will obtain head CT to be safe while were obtaining abdominal imaging but again there is no focal deficits and no history of recent trauma. Given his history of constipation issues and use of buprenorphine, will trial an IV dose of Tylenol as well as some Zofran to help with symptoms here initially. Blood work here without anemia. Normal platelet count. Mild leukocytosis 11.9. No significant electrolyte abnormality without signs of renal dysfunction today. No evidence of hepatitis or pancreatitis. Normal troponin I doubt this is cardiac given location of the pain and workup. CT head without acute findings noted by radiology. CT abdomen pelvis completed per radiology shows a 3 mm right-sided kidney stone with some mild hydronephrosis likely causing his pain and symptoms. Does have some stool burden noted as well but no free fluid or obstructions reported. Believe the kidney stones giving him the pain he is experiencing. Will give some Toradol for pain control although he is having some improvement on reassessment. Still appears somewhat drowsy. Difficult pain situation with buprenorphine. Discussed with him staying for further care and he was agreeable. Hospitalist contacted. DIAGNOSIS: Right kidney stone, nausea and vomiting, drowsiness DISPOSITION: Hospitalist will evaluate Patient was agreeable with this plan. Past Med/Surg History Problem List (Updated 08/14/24 @ 13:03 by Nidia Faust DO) Drowsy (Acute) Nausea & vomiting (Acute) Kidney stone on right side (Acute) Abrasion of skin of right lower leg (Acute) Cellulitis of right lower extremity (Acute) Symptomatic bradycardia (Acute) Cellulitis Nausea & vomiting Sinus bradycardia Chronic constipation Seizure disorder Constipation (Acute) Encounter for pre-operative examination Altered mental status (Acute) Community acquired pneumonia (Acute) Drug overdose (Acute) Medical History (Updated 08/14/24 @ 13:03 by Nidia Faust DO) Traumatic brain injury (01/28/13) Post traumatic stress disorder (01/28/13) Benign hypertension (01/28/13) Dyssynergic defecation "had a special test done at [facility] [place]" Hx of irritable bowel syndrome w/constipation History of urinary hesitancy Hx of traumatic brain injury residual effect: dizziness, lightheadedness, falling, memory lapses; f/u w/neurologist thru the [place], most recent visit via zoom 10/15/22 Generalized anxiety disorder with panic attacks Anxiety disorder History of seizure many years ago; currrently on clonazepam History of panic attacks Hx of cardiac arrhythmia ~2013 or 2014, "heart was racing, went to up over 200bpm, having chest pain; called EMS, who came to house to get heart rate down" taken to hospital, transferred to [place], testing done and found to have an arrhythmia; only f/u PCP Surgical History (Updated 08/14/24 @ 13:03 by Nidia Faust DO) Hx of colonoscopy History of surgery "removed cancer cells from his scalp" Hx of shoulder surgery pectoralis muscle reattached Hx of arthroscopic knee surgery rt. History of intestinal surgery re-anastomosis/reveral of colostomy of bowel Hx of hernia repair x2 History of partial colectomy w/removal appendix; w/colostomy Social History Smoking Status: Current every day smoker Tobacco Type: E-cigarettes / Vaping Cigarettes Per Day: vape daily; Second Hand Exposure: No; Do You Dip or Chew Tobacco: No; Hx Alcohol Use: No Hx Substance Use: No Preferred Language: Fijian Communication Ability: Effective Chief Safety Officer Required: No Beliefs That Will Affect Care: None Current Living Situation: Alone Other Information That Helps Us Care for You: No Feels Safe at Home: Yes Safety Concerns: Feels Safe At This Time Assistive Devices: Glasses Allergies Allergies Allergy/AdvReac Type Severity Reaction Status Date / Time meloxicam Allergy Unknown Unknown - Unverified 08/14/24 09:18 On file w/ Mail Order pharmacy naloxone Allergy throat Verified 08/14/24 09:18 swelling, headaches trazodone Allergy sexual Verified 08/14/24 09:18 dysfunction Home Meds Home Medications Medication Instructions Recorded Confirmed acetaminophen 325 mg tablet 650 mg PO QID PRN Pain 10/15/22 08/14/24 buprenorphine HCl 8 mg sublingual 24 mg sublingual DAILY 10/15/22 08/14/24 tablet clonazepam 1 mg tablet 1 mg PO QID 10/15/22 08/14/24 clonidine HCl 0.3 mg tablet 0.3 mg PO TID 10/15/22 08/14/24 docusate sodium 100 mg tablet 100 mg PO BID PRN Constipation 10/15/22 08/14/24 polyethylene glycol 3350 17 17 - 34 g PO QAM PRN Constipation 10/15/22 08/14/24 gram/dose oral powder (Miralax) quetiapine 100 mg tablet 100 mg PO QAM 10/15/22 08/14/24 zolpidem 10 mg tablet 10 mg PO HS PRN Sleep 10/15/22 08/14/24 quetiapine 200 mg tablet (Seroquel) 200 mg PO HS 07/30/24 08/14/24 Results & Data (ED) Vital Signs Vital Signs - 24 hr 08/14/24 06:51 08/14/24 06:55 08/14/24 07:03 Temperature 36.8 C Temperature Source Oral Pulse Rate 65 62 Pulse Rate [Apical] Respiratory Rate 18 Respiratory Effort / Characteristics Non-Labored Respiratory Depth Normal Normal Blood Pressure 155/100 H Blood Pressure [Right Arm] Blood Pressure Mean 118 Blood Pressure Mean [Right Arm] Pulse Oximetry 100 Oxygen Delivery Method Room Air Sepsis Recent Fever Within 48 Hours No Sepsis New/Unexplained Change in Mental Status No Sepsis Action Taken by Nursing No Action Required 08/14/24 07:03 08/14/24 08:50 Temperature Temperature Source Pulse Rate Pulse Rate [Apical] 54 L Respiratory Rate 20 Respiratory Effort / Characteristics Respiratory Depth Normal Blood Pressure Blood Pressure [Right Arm] 92/56 L Blood Pressure Mean Blood Pressure Mean [Right Arm] 68 Pulse Oximetry 95 96 Oxygen Delivery Method Room Air Room Air Sepsis Recent Fever Within 48 Hours Sepsis New/Unexplained Change in Mental Status Sepsis Action Taken by Nursing Laboratory Data 08/14/24 07:06 08/14/24 07:06 Lab Results 08/14/24 08/14/24 Range/Units 07:06 07:13 WBC 11.90 H (4.8-10.8) K/ul RBC 4.99 (4.70-6.10) M/uL Hgb 14.8 (14.0-18.0) g/dl POC Hgb 15.0 (14.0-18.0) g/dl Hct 41.3 L (42.0-52.0) % POC Hct 44 (42-52) % MCV 82.8 (80.0-100.0) fL MCH 29.7 (25.0-34.0) pg MCHC 35.8 (32.0-36.0) g/dL RDW Std Deviation 36.7 (36.4-46.3) fL RDW Coeff of Mini 12.5 (11.5-14.5) % Plt Count 196 (130-400) K/uL MPV 11.0 (9.4-12.4) fL Immature Gran % (Auto) 0.3 % Neut % (Auto) 88.2 % Lymph % (Auto) 4.9 % Ada % (Auto) 6.1 % Eos % (Auto) 0.3 % Baso % (Auto) 0.2 % Neut # (Auto) 10.50 H (1.40-6.50) K/uL Lymph # (Auto) 0.58 L (1.20-3.40) K/uL Ada # (Auto) 0.73 H (0.11-0.59) K/uL Eos # (Auto) 0.03 (0.00-0.50) K/uL Baso # (Auto) 0.02 (0.00-0.20) K/uL Immature Gran # (Auto) 0.04 (0.01-0.20) K/uL PT 11.4 (9.0-12.0) Seconds INR 1.1 (0.9-1.1) POC Sodium 141 (135-144) mmol/L Sodium 142 (136-145) mmol/L POC Potassium 3.5 (3.3-5.0) mmol/L Potassium 3.6 (3.5-5.1) mmol/L POC Chloride 101 (101-112) mmol/L Chloride 104 (98-107) mmol/L Carbon Dioxide 28 (21-32) mmol/L POC Total CO2 26 (24-31) mmol/L Anion Gap 10 (3-11) POC Anion Gap 19.0 (16-25) mmol/L POC BUN 15 (7-18) mg/dl BUN 15 (6-23) mg/dl Creatinine 1.09 (0.6-1.4) mg/dl POC Creatinine 1.1 (0.6-1.3) mg/dl Est Cr Clr Drug Dosing 98.9 ml/min eGFR 87.99 BUN/Creatinine Ratio 13.8 (10-20) Glucose 118 H (70-99(Fasting)) mg/dl POC Glucose (other) 122 H (70-99) mg/dl Lactate 1.1 (0.4-2.0) mmol/L Calcium 9.4 (8.6-10.3) mg/dl POC Ioniz Calcium Arianne 1.14 (1.12-1.32) mmol/l Total Bilirubin 0.5 (0.2-1.0) mg/dl AST 16 (13-39) U/L ALT 6 L (7-52) U/L Alkaline Phosphatase 89 (34-104) U/L Troponin I High Sens 2.8 (0-20) pg/ml Total Protein 7.0 (6.0-8.3) gm/dl Albumin 4.5 (3.4-5.0) gm/dl Globulin 2.5 (2.5-4.0) gm/dl Albumin/Globulin Ratio 1.8 (0.9-2) Lipase 16 (11-82) U/L Administered Medications Clonazepam (Clonazepam 1 Mg Tab) 1 mg PO QID DAWSON Stop: 09/13/24 12:59 Last Admin: 08/14/24 12:37 Dose: 1 mg Documented By: THONG Discontinued Medications Diatrizoate Meglumine (Diatrizoate Meglumine 30% 100ml Vial) 100 ml INSTIL UD ONE Stop: 08/14/24 13:55 Last Admin: 08/14/24 13:56 Dose: 2 ml Documented By: [id number] Acetaminophen ([facility]) 1,000 mg in 100 mls @ 400 mls/hr IV NOW STA Stop: 08/14/24 07:10 Last Infusion: 08/14/24 07:55 Dose: Infused Documented By: Admin: 08/14/24 07:16 Dose: 400 mls/hr Documented By: ROSA Sodium Chloride (Nss) 1,000 mls @ 999 mls/hr IV .Q1H1M ONE Stop: 08/14/24 10:00 Last Infusion: 08/14/24 10:46 Dose: Infused Documented By: Admin: 08/14/24 09:14 Dose: 999 mls/hr Documented By: ROSA Ceftriaxone Sodium (Rocephin) 2,000 mg in 50 mls @ 100 mls/hr IV NOW STA Stop: 08/14/24 10:19 Last Infusion: 08/14/24 11:53 Dose: Infused Documented By: Admin: 08/14/24 10:57 Dose: 100 mls/hr Documented By: ROSA Ioversol (Optiray 320 100ml) 94 ml IV ONCE ONE Stop: 08/14/24 07:28 Last Admin: 08/14/24 07:27 Dose: 94 ml Documented By: JOSSELINE Ondansetron HCl (Ondansetron Inj 2 Mg/Ml 2 Ml Vial) 4 mg IV NOW STA Stop: 08/14/24 06:57 Last Admin: 08/14/24 07:16 Dose: 4 mg Documented By: ROSA Imaging Data Radiologist's Impression: Abdomen/Pelvis CT 08/14/24 06:50 EXAM: CT abd pelvis IV con only CLINICAL HISTORY: Pt arrives via EMS, reports he woke at 0230 c/o right sided flank and back pain 5 episodes of vomiting since per pt on arrival to ED pt is alert but slow to answer questions 94ml opti 320 TECHNIQUE: Contrast-enhanced CT of the abdomen and pelvis was performed, with the following protocol: axial images with, and reconstructed coronal and sagittal images. 94 ml Opti 320 intravenous contrast was administered. One of the following dose reduction techniques was utilized for this exam: Automated exposure control, adjustment of the mA and/or kV according to patient size, and use of iterative reconstruction. COMPARISON: Prior CT dated 01/23/2024 for comparison. FINDINGS: Abdomen: Liver: Normal in size, shape, and density. No focal lesions, cysts, or masses were identified. Hepatic vasculature and biliary ducts are unremarkable. Gallbladder and Biliary System: The gallbladder is normal in size and shape. No wall thickening, pericholecystic fluid, or gallstones were identified. The common bile duct is normal in caliber without dilation. Pancreas: Pancreatic head, body, and tail are visualized and appear normal in size and density. No pancreatic masses or calcifications were noted. The pancreatic duct is not dilated. Spleen: Normal in size, shape, and density. No splenic lesions or masses were identified. Kidneys and Adrenal Glands: Obstructive calculus of 3 mm size in right vesicoureteric junction and causing upstream mild hydroureteronephrosis. Mild right perinephric fluid and fat stranding seen. Cortical cyst of 7 mm at lower pole of right kidney. Both kidneys are normal in size, shape, and position. Cortical thickness is within normal limits. No renal calculi. Adrenal glands are unremarkable with no evidence of masses or hyperplasia. Pelvis: Urinary Bladder: Normal in contour and wall thickness. No intraluminal lesions identified. Prostate: Normal in size and contour. No focal lesions or masses identified. Seminal Vesicles: Normal in size and appearance. No abnormalities noted. Rectum and Sigmoid Colon: Anastomotic sutures in sigmoid colon. Normal wall thickness and no evidence of mass. Peritoneal and Retroperitoneal Structures: No free fluid or abnormal fluid collections were identified within the abdomen or pelvis. No lymphadenopathy was noted. Bowel: The visualized bowel loops are normal in caliber and appearance. No evidence of bowel obstruction or wall thickening. Bones and Soft Tissues: Small sclerotic foci likely bone islands in bilateral acetabuli, femur heads and left superior pubic ramus. Pelvic bones and soft tissues are unremarkable. No fractures or abnormal masses were identified. IMPRESSION: Obstructive calculus of 3 mm size in right vesicoureteric junction and causing upstream mild hydroureteronephrosis. [facility]'s ER was called at at 7:24 PM BLADDER TRIMMER, 08/14/2024, and nurse Shell was informed about the presence of isignificant medical findings. Electronically signed by Cj Wharton 08-14-2024 08:[address] 08/14/24 06:55 EXAM: CT head/brain wo con CLINICAL HISTORY: Pt arrives via EMS, reports he woke at 0230 c/o right sided flank and back pain 5 episodes of vomiting since per pt on arrival to ED pt is alert but slow to answer questions TECHNIQUE: Axial non-contrast CT scan of the brain was performed from the skull base to the high parietal region. One of the following dose reduction techniques were utilized for this exam: Automated exposure control, adjustment of the mA and/or kV according to patient size, use of iterative reconstruction. COMPARISON: NONE. FINDINGS: Brain Parenchyma: Normal attenuation of the cerebral hemispheres, cerebellum, and brainstem. No evidence of acute infarct, hemorrhage, or mass effect. No abnormal areas of hypo- or hyperattenuation. Ventricular System: Ventricles are normal in size and configuration. No evidence of hydrocephalus or ventricular enlargement. Subarachnoid Spaces: Normal sulci and cisterns. No evidence of subarachnoid hemorrhage or extra-axial fluid collections. Cerebellum and Brainstem: Normal size and signal. No masses, lesions, or areas of abnormal signal. Orbits: Normal appearance of the globes, optic nerves, and extraocular muscles. No evidence of orbital masses or abnormal signal. Sinuses: Clear paranasal sinuses. No evidence of sinusitis or mucosal thickening. Mastoid Air Cells: Clear mastoid air cells. No evidence of mastoiditis. Skull and Meninges: Normal skull morphology. IMPRESSION: No evidence of extra-axial or intracerebral hemorrhage, established territorial ischemic infarction or obvious space-occupying lesion seen. Electronically signed by Cj Wharton 08-14-2024 08:28 AM Discharge Plan Visit Data Chief Complaint: Flank Pain Stated Complaint: R Side Pain, Back Pain, N/V ED Provider: Eugene Mauircio Discharge Problem: Kidney stone on right side, Nausea & vomiting, Drowsy Patient Disposition: Admitted As Inpatient Discharge Instructions Interventions: ED Discharge Assessment Last Done: 08/14/24 11:53
[2024-08-14] MEDS: ONDANSETRON INJ 2 MG/ML 2 ML VIAL IV STA (07:16)
[2024-08-14] MEDS: ACETAMINOPHEN 1,000 MG/100 ML VIAL IV STA (07:16)
[2024-08-14 07:26] LABS: iSTAT Creatinine 1.1 mg/dl (0.6-1.3); iSTAT Ionized Calcium 1.14 mmol/l (1.12-1.32); iSTAT Potassium 3.5 mmol/L (3.3-5.0)
[2024-08-14] MEDS: OPTIRAY 320 100ml IV ONE (07:27)
[2024-08-14 07:30] LABS: Basophils # (auto) 0.02 K/uL (0.00-0.20); Basophils % (auto) 0.2 %; Eosinophils # (auto) 0.03 K/uL (0.00-0.50); Eosinophils % (auto) 0.3 %; Hematocrit (blood only) 41.3 % (42.0-52.0); Hemoglobin 14.8 g/dl (14.0-18.0); Immature Granulocytes # (auto) 0.04 K/uL (0.01-0.20); Immature Granulocytes % (auto) 0.3 %; Lymphocytes # (auto) 0.58 K/uL (1.20-3.40); Lymphocytes % (auto) 4.9 %; Mean Corpuscular Hemoglobin 29.7 pg (25.0-34.0); Mean Corpuscular Hgb Conc 35.8 g/dL (32.0-36.0); Mean Corpuscular Volume 82.8 fL (80.0-100.0); Monocytes # (auto) 0.73 K/uL (0.11-0.59); Monocytes % (auto) 6.1 %; Neutrophils % (auto) 88.2 %; Platelet Count 196 K/uL (130-400); RDW Coefficient of Variation 12.5 % (11.5-14.5); RDW Standard Deviation 36.7 fL (36.4-46.3); Red Blood Count 4.99 M/uL (4.70-6.10)
[2024-08-14 07:48] LABS: Albumin Globulin Ratio 1.8 (0.9-2); Albumin Level 4.5 gm/dl (3.4-5.0); BUN Creatinine Ratio 13.8 (10-20); Bilirubin,Total 0.5 mg/dl (0.2-1.0); Calcium 9.4 mg/dl (8.6-10.3); Creatinine Clr Calc Pharmacy 98.9 ml/min; Globulin 2.5 gm/dl (2.5-4.0); Potassium 3.6 mmol/L (3.5-5.1)
[2024-08-14 07:52] LABS: Troponin I High Sensitivity 2.8 pg/ml (0-20)
[2024-08-14 08:06] LABS: INR 1.1 (0.9-1.1); Prothrombin Time 11.4 Seconds (9.0-12.0)
--- NOTE | 2024-08-14 08:28 | CT Scan Report ---
EXAM: CT head/brain wo con CLINICAL HISTORY: Pt arrives via EMS, reports he woke at 0230 c/o right sided flank and back pain 5 episodes of vomiting since per pt on arrival to ED pt is alert but slow to answer questions TECHNIQUE: Axial non-contrast CT scan of the brain was performed from the skull base to the high parietal region. One of the following dose reduction techniques were utilized for this exam: Automated exposure control, adjustment of the mA and/or kV according to patient size, use of iterative reconstruction. COMPARISON: NONE. FINDINGS: Brain Parenchyma: Normal attenuation of the cerebral hemispheres, cerebellum, and brainstem. No evidence of acute infarct, hemorrhage, or mass effect. No abnormal areas of hypo- or hyperattenuation. Ventricular System: Ventricles are normal in size and configuration. No evidence of hydrocephalus or ventricular enlargement. Subarachnoid Spaces: Normal sulci and cisterns. No evidence of subarachnoid hemorrhage or extra-axial fluid collections. Cerebellum and Brainstem: Normal size and signal. No masses, lesions, or areas of abnormal signal. Orbits: Normal appearance of the globes, optic nerves, and extraocular muscles. No evidence of orbital masses or abnormal signal. Sinuses: Clear paranasal sinuses. No evidence of sinusitis or mucosal thickening. Mastoid Air Cells: Clear mastoid air cells. No evidence of mastoiditis. Skull and Meninges: Normal skull morphology. IMPRESSION: No evidence of extra-axial or intracerebral hemorrhage, established territorial ischemic infarction or obvious space-occupying lesion seen. Electronically signed by Cj Wharton 08-14-2024 08:28 AM
--- NOTE | 2024-08-14 08:34 | CT Scan Report ---
EXAM: CT abd pelvis IV con only CLINICAL HISTORY: Pt arrives via EMS, reports he woke at 0230 c/o right sided flank and back pain 5 episodes of vomiting since per pt on arrival to ED pt is alert but slow to answer questions 94ml opti 320 TECHNIQUE: Contrast-enhanced CT of the abdomen and pelvis was performed, with the following protocol: axial images with, and reconstructed coronal and sagittal images. 94 ml Opti 320 intravenous contrast was administered. One of the following dose reduction techniques was utilized for this exam: Automated exposure control, adjustment of the mA and/or kV according to patient size, and use of iterative reconstruction. COMPARISON: Prior CT dated 01/23/2024 for comparison. FINDINGS: Abdomen: Liver: Normal in size, shape, and density. No focal lesions, cysts, or masses were identified. Hepatic vasculature and biliary ducts are unremarkable. Gallbladder and Biliary System: The gallbladder is normal in size and shape. No wall thickening, pericholecystic fluid, or gallstones were identified. The common bile duct is normal in caliber without dilation. Pancreas: Pancreatic head, body, and tail are visualized and appear normal in size and density. No pancreatic masses or calcifications were noted. The pancreatic duct is not dilated. Spleen: Normal in size, shape, and density. No splenic lesions or masses were identified. Kidneys and Adrenal Glands: Obstructive calculus of 3 mm size in right vesicoureteric junction and causing upstream mild hydroureteronephrosis. Mild right perinephric fluid and fat stranding seen. Cortical cyst of 7 mm at lower pole of right kidney. Both kidneys are normal in size, shape, and position. Cortical thickness is within normal limits. No renal calculi. Adrenal glands are unremarkable with no evidence of masses or hyperplasia. Pelvis: Urinary Bladder: Normal in contour and wall thickness. No intraluminal lesions identified. Prostate: Normal in size and contour. No focal lesions or masses identified. Seminal Vesicles: Normal in size and appearance. No abnormalities noted. Rectum and Sigmoid Colon: Anastomotic sutures in sigmoid colon. Normal wall thickness and no evidence of mass. Peritoneal and Retroperitoneal Structures: No free fluid or abnormal fluid collections were identified within the abdomen or pelvis. No lymphadenopathy was noted. Bowel: The visualized bowel loops are normal in caliber and appearance. No evidence of bowel obstruction or wall thickening. Bones and Soft Tissues: Small sclerotic foci likely bone islands in bilateral acetabuli, femur heads and left superior pubic ramus. Pelvic bones and soft tissues are unremarkable. No fractures or abnormal masses were identified. IMPRESSION: Obstructive calculus of 3 mm size in right vesicoureteric junction and causing upstream mild hydroureteronephrosis. [facility] ER was called at at 7:24 PM PRODUCT ASSEMBLER, 08/14/2024, and nurse Shell was informed about the presence of isignificant medical findings. Electronically signed by Cj Wharton 08-14-2024 08:34 AM
[2024-08-14] MEDS: SODIUM CHLORIDE 0.9% 1,000 ML IV ONE (09:14)
[2024-08-14] MEDS ORDERED: ONDANSETRON INJ 2 MG/ML 2 ML VIAL IV PRN (09:37)
[2024-08-14] MEDS ORDERED: ACETAMINOPHEN 325 MG TAB PO PRN (09:37)
[2024-08-14] MEDS ORDERED: POLYETHYLENE (MIRALAX) 17 GM PACK PO PRN ×2 (09:37→12:20)
--- NOTE | 2024-08-14 10:10 | History & Physical Report ---
Date of Service August 14, 2024 Assessment & Plan (1) Kidney stone on right side: Plan: This is a 39-year-old gentleman with past medical history of chronic constipation with history of partial colectomy secondary to perforation, history of TBI with ongoing seizures who presented to the ED on 08/14/2024 with a chief complaint of right flank pain. Admit to Med/Tele given hypotension and bradycardia in ED. CTAP 08/14: obstructive calculus of 3mm size in right vesicoureteric junction, causing upstream mild hydroureteronephrosis CBC: leukocytosis of 11.90 w/ neutrophil predominance. Hgb stable. BMP: kidney function/electrolytes stable. Urine culture pending Blood cultures pending IV Rocephin q24h s/p 1L NSS in ED. Encourage PO fluid intake Urology consulted appreciate recommendations. Pain management with Tylenol and Toradol Avoid Narcotics if possible given patient hx of drug abuse. On Scheduled Buprenorphine - continue inpatient. AM CBC, BMP (2) Drowsy: Plan: Patient AxOx3 but appears drowsy on encounter. Unsure patient baseline w/ hx of TBI and Seizure d/o does appear last hospital stay he was lethargic and with tangential speech on admission. Patient denies illicit substance use prior to coming to hospital. Urine drug screen pending Head CT 08/14: Negative Continue Clonazepam QID for Seizure d/o tx. (3) Sinus bradycardia: Plan: Unclear etiology patient recently admitted 07/30-07/31 due to bradycardia/cellulitis. EKG 08/14: normal sinus rhythm. Hold home Clonidine due to bradycardia and hypotension Anticipate rebound hypertension when patient's BP normalizes prn hydralazine 5mg IV Q23h if SBP > 180 Plan Chronic conditions: Constipation: Colace and Miralax prn Insomnia: Zolpidem prn Diet: clear liquid Disposition: tele Code status: full DVT prophylaxis: Lovenox q PM Case discussed with Dr. Brown at time of admission. History of Present Illness Primary Care Provider: Hermilo Mitchell MD This is a 39-year-old gentleman with past medical history of chronic constipation with history of partial colectomy secondary to perforation, history of TBI with ongoing seizures who presented to the ED on 08/14/2024 with a chief complaint of right flank pain. The patient was seen and examined at bedside. He was alert and oriented x 3 but did appear drowsy. Patient was bradycardic and hypotensive at time of encounter. Patient denies any recent drug use aside from what is prescribed to him. He states that he has not used illicit substances in a long time. He is on buprenorphine daily. Patient reports that he was experiencing severe right lower flank/abdominal pain with about 5 episodes of emesis. At time of encounter he did not feel nauseous. He felt that he would be able to tolerate some clear liquids. He denied any chest pain or shortness of breath. Patient was recently hospitalized from 07/30 to 07/31. At that time he was treated for bradycardia and burn/cellulitis. He was discharged on Keflex and Bactrim for his cellulitis. Allergies Allergy/AdvReac Type Severity Reaction Status Date / Time meloxicam Allergy Unknown Unknown - Unverified 08/14/24 09:18 On file w/ Mail Order pharmacy naloxone Allergy throat Verified 08/14/24 09:18 swelling, headaches trazodone Allergy sexual Verified 08/14/24 09:18 dysfunction Home Medications Medication Instructions Recorded Confirmed Type acetaminophen 325 mg tablet 650 mg PO QID PRN Pain 10/15/22 08/14/24 History buprenorphine HCl 8 mg sublingual 24 mg sublingual DAILY 10/15/22 08/14/24 History tablet clonazepam 1 mg tablet 1 mg PO QID 10/15/22 08/14/24 History clonidine HCl 0.3 mg tablet 0.3 mg PO TID 10/15/22 08/14/24 History docusate sodium 100 mg tablet 100 mg PO BID PRN Constipation 10/15/22 08/14/24 History polyethylene glycol 3350 17 17 - 34 g PO QAM PRN Constipation 10/15/22 08/14/24 History gram/dose oral powder (Miralax) quetiapine 100 mg tablet 100 mg PO QAM 10/15/22 08/14/24 History zolpidem 10 mg tablet 10 mg PO HS PRN Sleep 10/15/22 08/14/24 History quetiapine 200 mg tablet (Seroquel) 200 mg PO HS 07/30/24 08/14/24 History Past Med/Surg History Problem List (Updated 08/14/24 @ 09:03 by Eugene Mauricio M.D.) Drowsy (Acute) Nausea & vomiting (Acute) Kidney stone on right side (Acute) Abrasion of skin of right lower leg (Acute) Cellulitis of right lower extremity (Acute) Symptomatic bradycardia (Acute) Cellulitis Nausea & vomiting Sinus bradycardia Chronic constipation Seizure disorder Constipation (Acute) Encounter for pre-operative examination Altered mental status (Acute) Community acquired pneumonia (Acute) Drug overdose (Acute) Medical History 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 [facility]" Hx of irritable bowel syndrome w/constipation History of urinary hesitancy Hx of traumatic brain injury residual effect: dizziness, lightheadedness, falling, memory lapses; f/u w/neurologist thru the [place], most recent visit via zoom 10/15/22 Generalized anxiety disorder with panic attacks Anxiety disorder History of seizure many years ago; currrently on clonazepam History of panic attacks Hx of cardiac arrhythmia ~2013 or 2014, "heart was racing, went to up over 200bpm, having chest pain; called EMS, who came to house to get heart rate down" taken to hospital, transferred to [place], testing done and found to have an arrhythmia; only f/u PCP Surgical History History of surgery "removed cancer cells from his scalp" Hx of shoulder surgery pectoralis muscle reattached Hx of arthroscopic knee surgery rt. History of intestinal surgery re-anastomosis/reveral of colostomy of bowel Hx of hernia repair x2 History of partial colectomy w/removal appendix; w/colostomy Social History Smoking Status: Current every day smoker Tobacco Type: E-cigarettes / Vaping Cigarettes Per Day: vape daily; Second Hand Exposure: No; Do You Dip or Chew Tobacco: No; Hx Alcohol Use: No Hx Substance Use: No Preferred Language: German Communication Ability: Effective Senior Applications Architect Required: No Beliefs That Will Affect Care: None Current Living Situation: Alone Feels Safe at Home: Yes Assistive Devices: Glasses Physical Exam 2 Constitutional: WD/WN, vitals as above Respiratory: normal respiratory effort, lungs clear to auscultation Cardiovascular: bradycardia. no murmur. no edema Gastrointestinal (Abdomen): no abdominal tenderness to palpation Psychiatric: A+Ox3, euthymic affect drowsy Results & Data Results & Data Vital Signs (Past 12 Hours) Vital Signs Temp Pulse Pulse Resp BP BP Pulse Ox 08/14/24 08:50 54 L 20 92/56 L 96 08/14/24 07:03 95 08/14/24 06:55 62 08/14/24 06:51 36.8 C 65 18 155/100 H 100 O2 Del Method 08/14/24 08:50 Room Air 08/14/24 07:03 Room Air 08/14/24 06:55 08/14/24 06:51 Room Air Laboratory Results 08/14/24 07:06 08/14/24 07:06 Supervising Physician Co-Signing Physician Notes The patient was not seen by me. The chart was reviewed. Case discussed with ANA Cruz. Agree with assessment and plan PG Care Time/CCT Total # of Minutes Spent Total Time Spent with Patient: Total time spent is greater than 50% in coordination of care (as documented) at patient's floor/unit and/or counseling patient: Coding Level of Care Code 36239 INT INP/OBS CARE 2/55MIN Diagnoses Kidney stone on right side N20.0 Drowsy R40.0 Sinus bradycardia R00.1
[2024-08-14] MEDS: cefTRIAXone SODIUM 2,000 MG/50 ML BAG IV STA (10:57)
[2024-08-14 11:32] LABS: Appearance Urine Clear (Clear); Bilirubin Urine Negative (Negative); Blood Urine 3+ (Negative); Cast Urine Automated 0-2 /lpf (0-2); Color Urine Yellow; Epithelial Cell Urine Auto 0-2 /hpf (0-2); Glucose Urine UA Negative (Negative); Ketones Urine 1+ (Negative); Leukocyte Esterase Urine Negative (Negative); Nitrite Urine Negative (Negative); Protein Urine 1+ (Negative); RBC Urine Automated >20 /hpf (0-2); Specific Gravity Urine > 1.045 (1.000-1.030); Urobilinogen Urine Negative (Negative); WBC Urine Automated 0-5 /hpf (0-5)
[2024-08-14 11:47] LABS: Calcium Oxalate Crystals Urine Present (None Prsent)
[2024-08-14 11:49] LABS: Bacteria Urine Automated 1+ (None Seen)
[2024-08-14] MEDS ORDERED: hydrALAZINE HCL 20 MG/ML VIAL IV PRN (12:20)
[2024-08-14 12:21] LABS: Amphetamines+Metham, Urine Neg (Neg); Barbiturates, Urine Neg (Neg); Benzodiazepine, Urine Pos (Neg); Cocaine, Urine Neg (Neg); Fentanyl, Urine Neg (Neg); MDMA (Ecstacy), Urine Neg (Neg); Marijuana, Urine Neg (Neg); Methadone, Urine Neg (Neg); Opiate, Urine Neg (Neg); Phencyclidine, Urine Neg (Neg)
[2024-08-14] MEDS ORDERED: DOCUSATE SODIUM 100 MG CAP PO PRN (12:23)
[2024-08-14] MEDS ORDERED: ZOLPIDEM TARTRATE 5 MG TAB PO PRN (12:25)
[2024-08-14] MEDS: clonazePAM 1 MG TAB PO SCH (12:37)
[2024-08-14] MEDS ORDERED: ATROPINE SULFATE 0.1 MG/ML 10ML SYR IV PRN (13:05)
[2024-08-14] MEDS ORDERED: MEPERIDINE HCL 25 MG/ML CARP/VIAL IV PRN (13:05)
[2024-08-14] MEDS ORDERED: HYDROmorphone INJ 2 MG/ML SYR/VIAL IV PRN (13:05)
[2024-08-14] MEDS ORDERED: fentaNYL citrate PF 100 MCG/2 ML VIAL IV PRN (13:05)
[2024-08-14] MEDS ORDERED: ePHEDrine sulfate 50 MG/ML AMP IV PRN (13:05)
[2024-08-14] MEDS ORDERED: DEXAMETHASONE SOD INJ 4 MG/ML VIAL IV PRN (13:05)
--- NOTE | 2024-08-14 13:05 | Anesthesiology Consultation ---
Date of Service August 14, 2024 Assessment & Plan (1) Kidney stone on right side: Plan pt slow to respon to questions at baseline Chart Review Chart Review: Acceptable Risk for Surgery Consults Requested none ASA ASA3 Proposed Anesthesia Anesthesia Type: MAC Risk / Benefits Reviewed With: PT / POA / Parent / Guardian, Accepts Plan and Informed Consent Obtained History Surgery Operation Date: 08/14/24 13:30 Proposed Procedures p Cystoscopy, Right Retrograde Pyelogram, Right Ureteral Stent Insertion/Removal - Matti Nowak MD Height/Weight Height: 6 ft Weight: 78.4 kg Allergies Allergy/AdvReac Type Severity Reaction Status Date / Time meloxicam Allergy Unknown Unknown - Unverified 08/14/24 09:18 On file w/ Mail Order pharmacy naloxone Allergy throat Verified 08/14/24 09:18 swelling, headaches trazodone Allergy sexual Verified 08/14/24 09:18 dysfunction Medications Home Medications Medication Instructions Recorded Confirmed Last Taken acetaminophen 325 mg tablet 650 mg PO QID PRN Pain 10/15/22 08/14/24 Unknown buprenorphine HCl 8 mg sublingual 24 mg sublingual DAILY 10/15/22 08/14/24 07/30/24 tablet clonazepam 1 mg tablet 1 mg PO QID 10/15/22 08/14/24 07/30/24 clonidine HCl 0.3 mg tablet 0.3 mg PO TID 10/15/22 08/14/24 07/30/24 docusate sodium 100 mg tablet 100 mg PO BID PRN Constipation 10/15/22 08/14/24 10/20/22 polyethylene glycol 3350 17 17 - 34 g PO QAM PRN Constipation 10/15/22 08/14/24 10/18/22 gram/dose oral powder (Miralax) quetiapine 100 mg tablet 100 mg PO QAM 10/15/22 08/14/24 07/29/24 zolpidem 10 mg tablet 10 mg PO HS PRN Sleep 10/15/22 08/14/24 10/20/22 quetiapine 200 mg tablet (Seroquel) 200 mg PO HS 07/30/24 08/14/24 07/29/24 Active Medications Generic Name Dose Route Start Last Admin Trade Name Freq PRN Reason Stop Dose Admin Clonazepam 1 mg 08/14/24 13:00 08/14/24 12:37 Clonazepam 1 Mg Tab PO 12/16/24 12:59 1 mg QID DAWSON Administration NPO Date Last Intake of Fluids: 08/14/24 Time Last Intake of Fluids: 00:01 Date Last Intake of Solids: 08/13/24 Time Last Intake of Solids: 13:00 Past Medical History Medical History (Updated 08/14/24 @ 13:03 by Nidia Faust DO) Traumatic brain injury (01/28/13) Post traumatic stress disorder (01/28/13) Benign hypertension (01/28/13) 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. [facility]" Hx of irritable bowel syndrome w/constipation History of urinary hesitancy Hx of traumatic brain injury residual effect: dizziness, lightheadedness, falling, memory lapses; f/u w/neurologist thru the [place], most recent visit via zoom 10/15/22 Generalized anxiety disorder with panic attacks Anxiety disorder History of seizure many years ago; currrently on clonazepam History of panic attacks Hx of cardiac arrhythmia ~2013 or 2014, "heart was racing, went to up over 200bpm, having chest pain; called EMS, who came to house to get heart rate down" taken to hospital, transferred to [place], testing done and found to have an arrhythmia; only f/u PCP Exercise / Class Metabolic Activity II 4-5 Yardwork/Stairs/Walk up hill Past Surgical History Surgical History (Updated 08/14/24 @ 13:03 by Nidia Faust DO) Hx of colonoscopy History of surgery "removed cancer cells from his scalp" Hx of shoulder surgery pectoralis muscle reattached Hx of arthroscopic knee surgery rt. History of intestinal surgery re-anastomosis/reveral of colostomy of bowel Hx of hernia repair x2 History of partial colectomy w/removal appendix; w/colostomy Past Anesthesia History No Hx of Anesthesia Complications and No Family Hx of Anesthesia Complications History of PONV No Hx of PONV and No Hx of Motion Sickness Social History Smoking Status: Current every day smoker tobacco type: e-cigarettes Smoking cigarettes per day: vape daily Do You Dip or Chew Tobacco: No Hx Alcohol Use: No Hx Substance Use: No substance use type: does not use Physical Exam Vital Signs Last Vital Signs Temp 36.4 C L 08/14/24 12:21 Pulse 58 L 08/14/24 12:34 Resp 17 08/14/24 12:21 BP 112/72 08/14/24 12:21 Pulse Ox 97 08/14/24 12:21 O2 Del Method Room Air 08/14/24 12:21 ENMT Mouth: + dentition abnormality (13 teeth remain) and + small oral opening; no TMJ abnormality Thyromental Distance: > or= 3.5 Finger Breadths Mallampati Class: II Neck normal visual inspection, trachea midline and + facial hair; neck extension not limited Respiratory normal respiratory effort Auscultation: lungs clear to auscultation bilaterally Cardiovascular Rate/Rhythm: regular rate and regular rhythm Heart Sounds: no murmur Musculoskeletal Spine: normal cervical ROM Extremities: full ROM of extremities Neurologic moves all extremities Psychiatric Orientation: alert and oriented x 3 Testing Laboratory Results 08/14/24 07:06 08/14/24 07:06 PT 11.4 Seconds (9.0-12.0) 08/14/24 07:06 INR 1.1 (0.9-1.1) 08/14/24 07:06 Urine Color Yellow 08/14/24 Unknown Urine Appearance Clear (Clear) 08/14/24 Unknown Urine pH 7.0 (4.5-7.5) 08/14/24 Unknown Ur Specific Allison > 1.045 (1.000-1.030) H 08/14/24 Unknown Urine Protein 1+ (Negative) H 08/14/24 Unknown Urine Glucose (UA) Negative (Negative) 08/14/24 Unknown Urine Ketones 1+ (Negative) H 08/14/24 Unknown Urine Nitrite Negative (Negative) 08/14/24 Unknown Ur Leukocyte Esterase Negative (Negative) 08/14/24 Unknown Urine WBC (Auto) 0-5 /hpf (0-5) 08/14/24 Unknown Urine RBC (Auto) >20 /hpf (0-2) H 08/14/24 Unknown U Hyaline Cast (Auto) 0-2 /lpf (0-2) 08/14/24 Unknown U Epithel Cells (Auto) 0-2 /hpf (0-2) 08/14/24 Unknown Urine Bacteria (Auto) 1+ (None Seen) H 08/14/24 Unknown 08/14/24 07:13 POC Glucose (other) 122 H Electrocardiogram Date: 08/14/24 Findings: + NSR @ (60)
--- NOTE | 2024-08-14 13:10 | Urology Consultation ---
Date of Consultation August 14, 2024 Assessment & Plan (1) Nausea & vomiting: (2) Kidney stone on right side: Plan 39-year-old male admitted with right flank pain and a CT scan showing a 3 mm distal right ureteral calculus. Afebrile with stable vitals. Mild leukocytosis of 11. Creatinine stable at 1.09. Urinalysis did show 1+ bacteria. Recommended we proceed with cystoscopy, right ureteral stent placement due to obstructing stone and bacteria in urine Risk and benefits discussed, consent obtained Patient marked Patient already received ceftriaxone History of Present Illness Attending Physician: Stew Brown MD History of Present Illness 39-year-old male admitted with right flank pain and a CT scan showing a 3 mm distal right ureteral calculus. Afebrile with stable vitals. Mild leukocytosis of 11. Creatinine stable at 1.09. Urinalysis did show 1+ bacteria. Appropriately NPO. Allergies Allergy/AdvReac Type Severity Reaction Status Date / Time meloxicam Allergy Unknown Unknown - Unverified 08/14/24 09:18 On file w/ Mail Order pharmacy naloxone Allergy throat Verified 08/14/24 09:18 swelling, headaches trazodone Allergy sexual Verified 08/14/24 09:18 dysfunction Home Medications Medication Instructions Recorded Confirmed Type acetaminophen 325 mg tablet 650 mg PO QID PRN Pain 10/15/22 08/14/24 History buprenorphine HCl 8 mg sublingual 24 mg sublingual DAILY 10/15/22 08/14/24 History tablet clonazepam 1 mg tablet 1 mg PO QID 10/15/22 08/14/24 History clonidine HCl 0.3 mg tablet 0.3 mg PO TID 10/15/22 08/14/24 History docusate sodium 100 mg tablet 100 mg PO BID PRN Constipation 10/15/22 08/14/24 History polyethylene glycol 3350 17 17 - 34 g PO QAM PRN Constipation 10/15/22 08/14/24 History gram/dose oral powder (Miralax) quetiapine 100 mg tablet 100 mg PO QAM 10/15/22 08/14/24 History zolpidem 10 mg tablet 10 mg PO HS PRN Sleep 10/15/22 08/14/24 History quetiapine 200 mg tablet (Seroquel) 200 mg PO HS 07/30/24 08/14/24 History Patient History Medical History (Updated 08/14/24 @ 13:03 by Nidia Faust DO) Traumatic brain injury (01/28/13) Post traumatic stress disorder (01/28/13) Benign hypertension (01/28/13) 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 [facility]" Hx of irritable bowel syndrome w/constipation History of urinary hesitancy Hx of traumatic brain injury residual effect: dizziness, lightheadedness, falling, memory lapses; f/u w/neurologist thru the [place], most recent visit via zoom 10/15/22 Generalized anxiety disorder with panic attacks Anxiety disorder History of seizure many years ago; currrently on clonazepam History of panic attacks Hx of cardiac arrhythmia ~2013 or 2014, "heart was racing, went to up over 200bpm, having chest pain; called EMS, who came to house to get heart rate down" taken to hospital, transferred to [place], testing done and found to have an arrhythmia; only f/u PCP Surgical History (Updated 08/14/24 @ 13:03 by Nidia Faust DO) Hx of colonoscopy History of surgery "removed cancer cells from his scalp" Hx of shoulder surgery pectoralis muscle reattached Hx of arthroscopic knee surgery rt. History of intestinal surgery re-anastomosis/reveral of colostomy of bowel Hx of hernia repair x2 History of partial colectomy w/removal appendix; w/colostomy Social History Smoking Status: Current every day smoker Tobacco Type: E-cigarettes / Vaping Cigarettes Per Day: vape daily; Second Hand Exposure: No; Do You Dip or Chew Tobacco: No; Hx Alcohol Use: No Hx Substance Use: No Preferred Language: Nauruan Communication Ability: Effective Document Examiner Required: No Beliefs That Will Affect Care: None Current Living Situation: Alone Other Information That Helps Us Care for You: No Feels Safe at Home: Yes Safety Concerns: Feels Safe At This Time Assistive Devices: Glasses Physical Exam Physical Exam: General: Alert and oriented, no acute distress HEENT: Normocephalic, mucous membranes moist Pulmonary: Nonlabored respirations Abdomen: Nondistended Extremities: Moves all 4 spontaneously Neuro: No gross deficits Skin: Warm, dry, no rashes noted Results & Data Vital Signs (Past 12 Hours) Vital Signs Temp Pulse Pulse Resp BP BP Pulse Ox 08/14/24 12:34 58 L 08/14/24 12:21 36.4 C L 55 L 17 112/72 97 08/14/24 11:51 36.5 C 65 18 118/72 95 08/14/24 10:57 69 08/14/24 10:36 86 14 147/85 H 96 08/14/24 10:36 08/14/24 08:50 54 L 20 92/56 L 96 08/14/24 07:03 95 08/14/24 06:55 62 08/14/24 06:51 36.8 C 65 18 155/100 H 100 O2 Del Method 08/14/24 12:34 08/14/24 12:21 Room Air 08/14/24 11:51 Room Air 08/14/24 10:57 08/14/24 10:36 Room Air 08/14/24 10:36 Room Air 08/14/24 08:50 Room Air 08/14/24 07:03 Room Air 08/14/24 06:55 08/14/24 06:51 Room Air PG Care Time/CCT Total # of Minutes Spent Total Time Spent with Patient: Total time spent is greater than 50% in coordination of care (as documented) at patient's floor/unit and/or counseling patient: Coding Level of Care Code 82995 IN/OBS CONSULT LVL 3,45M Diagnoses Nausea & vomiting R11.2 Kidney stone on right side N20.0
[2024-08-14] MEDS ORDERED: MIDAZOLAM HCL 1 MG/ML 2ML VIAL ONE (13:12)
[2024-08-14] MEDS ORDERED: PROPOFOL IV EMULSION 10 MG/ML 20 ML VIAL IV ONE (13:40)
[2024-08-14] MEDS ORDERED: ONDANSETRON INJ 2 MG/ML 2 ML VIAL ONE (13:40)
[2024-08-14] MEDS ORDERED: KETOROLAC 30 MG/ML VIAL ONE (13:40)
[2024-08-14] MEDS ORDERED: LIDOCAINE 2% 2 ML VIAL/AMP(20MG/ML) INFIL ONE (13:40)
[2024-08-14] MEDS: DIATRIZOATE MEGLUMINE 30% 100ML VIAL INSTIL ONE (13:56)
--- NOTE | 2024-08-14 13:58 | Operative Report ---
PG Post Operative Report Pre & Post Diagnosis Operation Date: 08/14/24 13:30 Pre-Op Diagnosis: Kidney stone on right side Post-Op Diagnosis: Kidney stone on right side I identified the patient and participated in the time-out.: Yes Procedure Operation Date: 08/14/24 13:30 Actual Procedures p Cystoscopy, Right Retrograde Pyelogram with radiographic interpretation, Right Ureteral Stent Insertion(Right) - Matti Nowak MD Surgeon Matti Nowak MD Osteology Teacher None Estimated Blood Loss 0 Findings Consistent with Post-Op Diagnosis Specimens None Drains 6 Slovenian by 26 cm right ureteral stent Anesthesia Type MAC Complications none Indications 39-year-old male with a distal right ureteral calculus and urinalysis positive for bacteria. Description of Procedure After informed consent was obtained, the patient was transported operative suite. MAC anesthesia was induced. The patient was placed in dorsolithotomy position prepped and draped in a sterile fashion. They received preoperative ceftriaxone for antibiotic prophylaxis. An appropriate surgical timeout was performed. A 22 Slovenian rigid scope was inserted per urethra into the bladder. Arguello cystoscopy revealed no stones or lesions. I turned my attention the right ureteral orifice and intubated this with a 5 Slovenian open-ended catheter. A right retrograde pyelogram was shot which showed moderate hydronephrosis. A sensor wire was advanced into the kidney and confirmed fluoroscopically. A 6 Slovenian by 26 cm right ureteral stent was deployed with a good proximal coil in the renal pelvis and a good distal coil noted in the bladder, confirmed fluoroscopically and under direct visualization, respectively. The bladder was emptied and the scope was removed. This concluded the end of the case. All counts were correct at the end of the case. I was present, scrubbed, and actively participated for the entirety of the procedure. I attest to the content of the Intraoperative Record and any orders documented therein. Any exceptions are noted below.
--- NOTE | 2024-08-14 14:43 | Anesthesiology Progress Note ---
Date of Service August 14, 2024 Anesthesia Post Procedure Vital Signs Vital Signs: Temp Pulse Pulse Resp BP BP Pulse Ox 08/14/24 14:20 36.5 C 50 L 14 111/68 100 08/14/24 14:10 51 L 13 107/68 100 08/14/24 14:04 36.3 C L 55 L 12 102/67 100 08/14/24 14:02 59 L 08/14/24 12:34 58 L 08/14/24 12:21 36.4 C L 55 L 17 112/72 97 08/14/24 11:51 36.5 C 65 18 118/72 95 08/14/24 10:57 69 08/14/24 10:36 86 14 147/85 H 96 08/14/24 10:36 08/14/24 08:50 54 L 20 92/56 L 96 08/14/24 07:03 95 08/14/24 06:55 62 08/14/24 06:51 36.8 C 65 18 155/100 H 100 O2 Del Method O2 Flow Rate 08/14/24 14:20 Nasal Cannula 2 08/14/24 14:10 Nasal Cannula 2 08/14/24 14:04 Nasal Cannula 2 08/14/24 14:02 08/14/24 12:34 08/14/24 12:21 Room Air 08/14/24 11:51 Room Air 08/14/24 10:57 08/14/24 10:36 Room Air 08/14/24 10:36 Room Air 08/14/24 08:50 Room Air 08/14/24 07:03 Room Air 08/14/24 06:55 08/14/24 06:51 Room Air Pain Intensity Right Flank: Pain Intensity: 2 Transfer of Care Handoff Completed per policy Notes Mental Status: alert / awake / arousable Patient Amnestic to Procedure: Yes Nausea / Vomiting: adequately controlled Pain: adequately controlled Airway Patency, RR, SpO2: stable & adequate BP & HR: stable & adequate Hydration State: stable & adequate Anesthetic Complications: no major complications apparent and Pt Satisfied with anesthetic care
[2024-08-14] MEDS: QUEtiapine FUMARATE 200 MG TAB PO SCH (21:49)
[2024-08-14] MEDS: ENOXAPARIN INJ 40 MG/0.4 ML SYR SQ SCH (21:49)
[2024-08-15 03:50] VITALS: O2SAT 95
[2024-08-15] MEDS: KETOROLAC TROMETHAMINE 15 MG/ML VIAL IM PRN (06:21)
[2024-08-15] MEDS: QUEtiapine FUMARATE 100 MG TABLET PO SCH (07:36)
[2024-08-15] MEDS: buprenorphine HCL 8 MG SUBL SL SCH (07:42)
--- NOTE | 2024-08-15 08:07 | Fluoroscopy Report ---
FL retrograde includes kub CLINICAL HISTORY: RETROGRADE, STENTright sided retrograde urethrogram COMPARISON STUDY: CT of same day FLUOROSCOPY TIME: 4.4 seconds FLUOROSCOPY IMAGES: 1 EXPOSURE DOSE: 0.69 mGy FINDINGS: A right-sided renal stent proximal portion appears to be satisfactory positioning. There is mild persistent hydronephrosis. IMPRESSION: Fluoroscopic assistance as above. ACT 112: Negative or not required by law. Electronically signed by: Trevor Martinez M.D. 08/15/2024 8:05 AM
--- NOTE | 2024-08-15 08:18 | Electrocardiogram Report ---
Test Reason : Blood Pressure : */* mmHG Vent. Rate : 60 BPM Atrial Rate : 60 BPM P-R Int : 180 ms QRS Dur : 80 ms QT Int : 398 ms P-R-T Axes : 62 42 31 degrees QTcB Int : 398 ms Normal sinus rhythm Normal ECG When compared with ECG of 30-Jul-2024 15:03, Vent. rate has increased by 20 bpm Confirmed by Adalid Bailey ([id number]) on 08/15/2024 8:18:09 AM Referred By: REFERRED SELF Confirmed By: Adalid Bailey
[2024-08-15 08:20] VITALS: BP 97/61; RESP 16; TEMP 97.5
[2024-08-15 08:38] LABS: Basophils # (auto) 0.01 K/uL (0.00-0.20); Basophils % (auto) 0.1 %; Eosinophils # (auto) 0.11 K/uL (0.00-0.50); Eosinophils % (auto) 1.3 %; Hematocrit (blood only) 42.1 % (42.0-52.0); Hemoglobin 14.8 g/dl (14.0-18.0); Immature Granulocytes # (auto) 0.03 K/uL (0.01-0.20); Immature Granulocytes % (auto) 0.4 %; Lymphocytes # (auto) 1.02 K/uL (1.20-3.40); Lymphocytes % (auto) 11.9 %; Mean Corpuscular Hemoglobin 29.8 pg (25.0-34.0); Mean Corpuscular Hgb Conc 35.2 g/dL (32.0-36.0); Mean Corpuscular Volume 84.9 fL (80.0-100.0); Mean Platelet Volume 10.9 fL (9.4-12.4); Monocytes # (auto) 0.79 K/uL (0.11-0.59); Monocytes % (auto) 9.2 %; Neutrophils # (auto) 6.59 K/uL (1.40-6.50); Neutrophils % (auto) 77.1 %; Platelet Count 158 K/uL (130-400); RDW Coefficient of Variation 12.6 % (11.5-14.5); RDW Standard Deviation 38.4 fL (36.4-46.3); Red Blood Count 4.96 M/uL (4.70-6.10); White Blood Count 8.55 K/ul (4.8-10.8)
[2024-08-15 09:00] LABS: BUN Creatinine Ratio 10.9 (10-20); Calcium 9.3 mg/dl (8.6-10.3); Creatinine Clr Calc Pharmacy 106.7 ml/min; Potassium 3.7 mmol/L (3.5-5.1)
[2024-08-15] MEDS: cefTRIAXone SODIUM 2,000 MG/50 ML BAG IV SCH (09:14)
--- NOTE | 2024-08-15 10:19 | Urology Progress Note ---
Date of Service August 15, 2024 Assessment & Plan (1) Kidney stone on right side: (2) Nausea & vomiting: Plan 39-year-old male with with a right ureteral calculus and concern for infection who is status post cystoscopy with right ureteral stent placement 08/14/2024 Tolerating stent well Labs improving Stable for discharge home with 10 total days of antibiotics from a urologic perspective. Message has been sent to schedule outpatient follow-up to discuss stone nigel atment. Admission and Anticipated Discharge Date Admission Date: August 14, 2024 Subjective Status post cystoscopy and right ureteral stent placement for distal stone and concern for UTI yesterday. Afebrile with stable vitals. Pain well controlled. Labs improving, culture still pending. Physical Exam Physical Exam: General: Alert and oriented, no acute distress HEENT: Normocephalic, mucous membranes moist Pulmonary: Nonlabored respirations Abdomen: Nondistended Extremities: Moves all 4 spontaneously Neuro: No gross deficits Skin: Warm, dry, no rashes noted Results & Data Vital Signs (Past 12 Hours) Vital Signs Temp Pulse Pulse Resp BP Pulse Ox O2 Del Method 08/15/24 08:19 36.4 C L 66 16 97/61 L 95 Room Air 08/15/24 06:48 69 08/15/24 03:23 36.6 C 67 18 100/62 95 Room Air 08/14/24 23:00 64 08/14/24 22:56 36.2 C L 67 18 94/56 L 97 Room Air PG Care Time/CCT Total # of Minutes Spent Total Time Spent with Patient: Total time spent is greater than 50% in coordination of care (as documented) at patient's floor/unit and/or counseling patient: Coding Level of Care Code 27210 SUB INP/OBS CARE 2/35MIN Diagnoses Kidney stone on right side N20.0 Nausea & vomiting R11.2
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
[2024-08-15 10:36] VITALS: PULSE 61
== END 2024-08-15 11:54 | disposition home or self-care (01) | DRG 661 ==
LOC: SUATTDRO → ED 06:45 → 2W 10:24